=== PATIENT | female | born 1970 | race Caucasian/White ===

== ENCOUNTER 2022-09-30 18:17 | Emergency (ER) | payer BC, SELFPAY ==
[~2022-09-30] VITALS: Ht 175.3 cm; Wt 160.3 kg
[2022-09-30] MEDS ORDERED: ALBUTEROL SULFATE 2.5MG/0.5ML INH NEB SOLN NEB ONE (19:45)
[2022-09-30 20:53] LABS: BASO % 0.4 % (0.0-1.0); EOS # 0.1 10^3/uL (0.0-0.5); EOS % 0.7 % (0.0-3.0); HEMATOCRIT 41.2 % (36.0-47.0); HEMOGLOBIN 12.5 g/dl (12.0-15.5); LYMPH % 10.2 % (24.0-44.0); MEAN CORPUSCULAR HEMOGLOBIN 25.3 pg (27.0-33.0); MEAN CORPUSCULAR HGB CONC 30.3 g/dl (32.0-36.5); MEAN CORPUSCULAR VOLUME 83.2 fl (80.0-96.0); MONO # 0.3 10^3/uL (0.0-0.8); MONO % 3.4 % (2.0-8.0); NEUTROPHILS # 8.3 10^3/uL (1.5-8.5); NEUTROPHILS % 83.7 % (36.0-66.0); RED BLOOD COUNT 4.95 10^6/uL (4.00-5.40); WHITE BLOOD COUNT 9.9 10^3/uL (4.0-10.0)
[2022-09-30 20:58] LABS: CK-MB VALUE MASS < 1.0 NG/ML (<3.6)
[2022-09-30 21:00] LABS: BLOOD UREA NITROGEN 14 MG/DL (9-23); CARBON DIOXIDE LEVEL 29 MMOL/L (20-31); CHLORIDE LEVEL 103 MMOL/L (98-107); CPK CREATINE PHOSPHOKINASE 74 U/L (34-145); CREATININE FOR GFR 0.55 MG/DL (0.55-1.30); GLOMERULAR FILTRATION RATE > 60.0 (>51); GLUCOSE, FASTING 144 MG/DL (60-100); MB/CK RELATIVE INDEX 1.35 (< OR =4); POTASSIUM SERUM 4.2 MMOL/L (3.5-5.1); SODIUM LEVEL 140 MMOL/L (136-145)
[2022-09-30 21:29] LABS: PLATELET COUNT, AUTOMATED 233 10^3/uL (150-450)
[2022-09-30] MEDS ORDERED: ISOVUE-370 76% 100ML VIAL As Ordered ONE (22:41)
[2022-09-30] MEDS ORDERED: CLOTRIMAZOLE 10 MG TROCHE PO ONE (23:55)
[2022-09-30] MEDS ORDERED: CLOT10TR PO (23:58)
[2022-09-30] MEDS ORDERED: BENZ200C70 PO (23:58)
[2022-10-01 00:16] VITALS: O2SAT 91
[2022-10-01 00:32] VITALS: BP 146/70
== END 2022-10-01 00:42 | disposition home or self-care (01) ==
LOC: M ED 18:17
DX: J06.9 Acute upper respiratory infection, unspecified (principal); B37.0 Candidal stomatitis; I50.20 Unspecified systolic (congestive) heart failure; F17.200 Nicotine dependence, unspecified, uncomplicated; Z88.2 Allergy status to sulfonamides; Z88.6 Allergy status to analgesic agent; Z88.5 Allergy status to narcotic agent; Z88.1 Allergy status to other antibiotic agents; Z88.8 Allergy status to other drugs, medicaments and biological substances
CPT/HCPCS: 36415; 71046; 71275; 80048; 82550; 82553; 83880; 84484; 85025; 85379; 87486; 87581; 87633; 87798; 93005; 94640; 94760; 99284; Q9967

== ENCOUNTER 2022-10-28 07:36 | Emergency (ER) | payer MEDICAID ==
[~2022-10-28] VITALS: Ht 175.3 cm; Wt 161.2 kg
[~2022-10-28 07:36] MED LIST: BENZ200C70 PO; CLOT10TR PO
[2022-10-28] MEDS ORDERED: METHOCARBAMOL 1,000 MG/10 ML VIAL IV ONE (09:00)
[2022-10-28] MEDS ORDERED: METHOCARBAMOL 1,000 MG/10 ML VIAL IM ONE (09:55)
[2022-10-28] MEDS ORDERED: PERCOCET 5MG/325MG TAB PO ONE (11:25)
[2022-10-28] MEDS ORDERED: MEDR4PAK PO (11:32)
[2022-10-28] MEDS ORDERED: METH-1165 PO (11:32)
[2022-10-28] MEDS ORDERED: PERC5TAB12 PO (11:32)
[2022-10-28 11:33] VITALS: BP 138/79
== END 2022-10-28 11:48 | disposition home or self-care (01) ==
LOC: M ED 07:36
DX: M25.512 Pain in left shoulder (principal); M19.012 Primary osteoarthritis, left shoulder; E11.9 Type 2 diabetes mellitus without complications; G47.33 Obstructive sleep apnea (adult) (pediatric); Z88.2 Allergy status to sulfonamides; Z88.5 Allergy status to narcotic agent; Z88.8 Allergy status to other drugs, medicaments and biological substances; Z79.899 Other long term (current) drug therapy
CPT/HCPCS: 73030; 80047; 93005; 96372; 99284; J1100; J2800

== ENCOUNTER → 2023-02-08 | Outpatient (CLI) | payer OTHER ==
[~2023-02-08] MED LIST changes: +ADDE30CA3 PO; +ALBU8.5H; +BUSP10TA; +CYMB60CA4 PO; +EPIP0.3I2; +ERGO500029; +FENO48TA8 PO; +MEDR4PAK PO; +METH-1165 PO; +METO1TAB32; +MONT10TA97; +OMEP40CA5; +ONDA-84; +PERC5TAB12 PO; +PRED5TA; +SKELAXIN PO; +TAMS1CAP17; +VITAMIN D 1.25MG PO
== END ==
LOC: M RAD 14:09
PROVIDERS: ATTEND Nurse Practitioner Family
DX: N28.1 Cyst of kidney, acquired (principal)

== ENCOUNTER 2023-02-16 12:06 | Emergency (ER) | payer OTHER ==
[~2023-02-16] VITALS: Ht 177.8 cm; Wt 162.7 kg
[2023-02-16] MEDS ORDERED: AMOX400S PO ×2 (13:33→18:22)
[2023-02-16] MEDS ORDERED: LIDOCAINE 1% SDV 5ML VIAL DILUENT ONE (13:35)
[2023-02-16] MEDS ORDERED: cefTRIAXone SOD 1GM VIAL IM ONE (13:35)
[2023-02-16 14:19] VITALS: BP 126/78; TEMP 98.5; O2SAT 94
== END 2023-02-16 14:21 | disposition home or self-care (01) ==
LOC: M ED 12:06
DX: J36 Peritonsillar abscess (principal); K21.9 Gastro-esophageal reflux disease without esophagitis; J45.909 Unspecified asthma, uncomplicated; Z88.2 Allergy status to sulfonamides; Z88.6 Allergy status to analgesic agent; Z88.8 Allergy status to other drugs, medicaments and biological substances; Z91.030 Bee allergy status; Z79.52 Long term (current) use of systemic steroids; Z79.2 Long term (current) use of antibiotics; Z79.83 Long term (current) use of bisphosphonates; Z79.899 Other long term (current) drug therapy
CPT/HCPCS: 87880; 96372; 99283; J0696

== ENCOUNTER → 2023-03-01 | Outpatient (CLI) | payer OTHER ==
[~2023-03-01] MED LIST changes: +AMOX400S PO
== END ==
LOC: M RAD 09:25
PROVIDERS: ATTEND Nurse Practitioner Family
DX: D41.00 Neoplasm of uncertain behavior of unspecified kidney (principal)

== ENCOUNTER → 2023-04-03 | Outpatient (CLI) | payer OTHER ==
[~2023-04-03] MED LIST changes: +GASTROGRAFIN SOLUTION 30ML ONE; +ISOVUE-370 76% 100ML VIAL ONE
== END ==
LOC: M PLAIMG 11:36
PROVIDERS: ATTEND Nurse Practitioner Family
DX: D41.00 Neoplasm of uncertain behavior of unspecified kidney (principal)

== ENCOUNTER → 2023-06-04 | Outpatient (CLI) | payer OTHER ==
[~2023-06-04] MED LIST changes: -GASTROGRAFIN SOLUTION 30ML ONE
== END ==
LOC: M PLAIMG 05-21 10:39
PROVIDERS: ATTEND Otolaryngology
DX: R22.1 Localized swelling, mass and lump, neck (principal)
CPT/HCPCS: 70491; Q9967

== ENCOUNTER → 2023-06-28 | Outpatient (CLI) | payer OTHER, MEDICAID ==
[~2023-06-28] MED LIST changes: +BUSP15TA47 PO; -EPIP0.3I2; +EPIP0.3I2 IM; -ERGO500029; +ERGO500029 PO; -ISOVUE-370 76% 100ML VIAL ONE; +META1TAB22 PO; +METH4TAB8 PO; +METO1TAB7 PO; -MONT10TA97; +MONT10TA97 PO; -OMEP40CA5; +OMEP40CA5 PO; -ONDA-84; +ONDA-84 PO; -TAMS1CAP17; +TAMS1CAP17 PO
== END ==
LOC: M SOG 07:57
PROVIDERS: ATTEND Orthopaedic Surgery
DX: M25.512 Pain in left shoulder (principal); Z53.9 Procedure and treatment not carried out, unspecified reason

== ENCOUNTER 2023-07-02 07:38 | Day surgery (SDC) | payer OTHER ==
[~2023-07-02] VITALS: Ht 175.3 cm; Wt 167.8 kg
[~2023-07-02 07:38] MED LIST changes: +GLYCOPYRROLATE INJ 0.2 MG/ML 2 ML VIAL As Ordered ONE; +LIDOCAINE 2% 100MG/5ML SDV (FOR ANES.) As Ordered ONE; +NS 1,000 ML IV ONE; +propofoL 200 MG/20 ML VIAL As Ordered ONE
[2023-07-02] MEDS ORDERED: propofoL 200 MG/20 ML VIAL As Ordered ONE ×2 (08:34→08:51)
[2023-07-02 09:09] VITALS: BP 119/59; O2SAT 100
== END 2023-07-02 09:29 | disposition home or self-care (01) ==
LOC: M OPP 07:38
PROVIDERS: ATTEND Internal Medicine Gastroenterology
DX: Z86.010 Personal history of colon polyps (principal); K63.5 Polyp of colon; D12.3 Benign neoplasm of transverse colon; K64.8 Other hemorrhoids; K31.7 Polyp of stomach and duodenum; K44.9 Diaphragmatic hernia without obstruction or gangrene; R12 Heartburn; E11.9 Type 2 diabetes mellitus without complications; G47.30 Sleep apnea, unspecified; Z99.89 Dependence on other enabling machines and devices; Z79.52 Long term (current) use of systemic steroids; Z79.83 Long term (current) use of bisphosphonates; Z79.899 Other long term (current) drug therapy; Z88.1 Allergy status to other antibiotic agents; Z88.2 Allergy status to sulfonamides; Z88.5 Allergy status to narcotic agent; Z88.6 Allergy status to analgesic agent; Z91.030 Bee allergy status; Z91.048 Other nonmedicinal substance allergy status

== ENCOUNTER → 2023-07-17 | Outpatient (CLI) | payer OTHER ==
[~2023-07-17] MED LIST changes: -GLYCOPYRROLATE INJ 0.2 MG/ML 2 ML VIAL As Ordered ONE; -LIDOCAINE 2% 100MG/5ML SDV (FOR ANES.) As Ordered ONE; -NS 1,000 ML IV ONE; -propofoL 200 MG/20 ML VIAL As Ordered ONE
== END ==
LOC: M SOG 07:59
PROVIDERS: ATTEND Orthopaedic Surgery
DX: M25.512 Pain in left shoulder (principal)

== ENCOUNTER → 2023-07-24 | Outpatient (CLI) | payer OTHER | LOC: M SOG 08:17 | PROVIDERS: ATTEND Physician Assistant | DX: M25.511 Pain in right shoulder (principal); M19.011 Primary osteoarthritis, right shoulder ==

== ENCOUNTER → 2023-09-04 | Outpatient (CLI) | payer MEDICAID, OTHER | LOC: M PLAIMG 11:52 | PROVIDERS: ATTEND Nurse Practitioner Family | DX: M48.02 Spinal stenosis, cervical region (principal); M25.78 Osteophyte, vertebrae; M49.86 Spondylopathy in diseases classified elsewhere, lumbar region ==

== ENCOUNTER → 2023-10-10 | Outpatient (REF) | payer OTHER, MEDICAID ==
[2023-10-10 18:26] LABS: ALBUMIN 3.1 G/DL (3.2-5.2); ALKALINE PHOSPHATASE 70 U/L (46-116); ALT/SGPT 31 U/L (7.0-40); AST/SGOT 19 U/L (<34); BILIRUBIN,TOTAL 0.3 MG/DL (0.3-1.2); BLOOD UREA NITROGEN 21 MG/DL (9-23); CALCIUM LEVEL 9.8 MG/DL (8.5-10.1); CARBON DIOXIDE LEVEL 29 MMOL/L (20-31); CHLORIDE LEVEL 105 MMOL/L (98-107); CREATININE FOR GFR 0.59 MG/DL (0.55-1.30); GLOMERULAR FILTRATION RATE > 60.0 (>51); GLUCOSE, FASTING 153 MG/DL (60-100); IMMUNOGLOBULIN A 243.2 MG/DL (40-350); IMMUNOGLOBULIN G 729 MG/DL (650-1600); POTASSIUM SERUM 4.3 MMOL/L (3.5-5.1); SODIUM LEVEL 140 MMOL/L (136-145); TOTAL PROTEIN 6.4 G/DL (5.7-8.2)
[2023-10-10 18:28] LABS: BASO # 0.1 10^3/uL (0.0-0.2); BASO % 0.6 % (0.0-1.0); EOS # 0.2 10^3/uL (0.0-0.5); EOS % 1.5 % (0.0-3.0); HEMATOCRIT 43.2 % (36.0-47.0); HEMOGLOBIN 13.5 g/dl (12.0-15.5); LYMPH # 1.8 10^3/uL (1.5-5.0); LYMPH % 13.3 % (24.0-44.0); MEAN CORPUSCULAR HEMOGLOBIN 27.8 pg (27.0-33.0); MEAN CORPUSCULAR HGB CONC 31.3 g/dl (32.0-36.5); MEAN CORPUSCULAR VOLUME 89.1 fl (80.0-96.0); MONO # 0.7 10^3/uL (0.0-0.8); MONO % 5.6 % (2.0-8.0); NEUTROPHILS # 10.2 10^3/uL (1.5-8.5); NEUTROPHILS % 76.2 % (36.0-66.0); PLATELET COUNT, AUTOMATED 251 10^3/uL (150-450); RED BLOOD COUNT 4.85 10^6/uL (4.00-5.40); WHITE BLOOD COUNT 13.3 10^3/uL (4.0-10.0)
[2023-10-10 18:40] LABS: ERYTHROCYTE SEDIMENTATION RATE 54 mm/hr (0-30)
[2023-10-10 18:59] LABS: HIV 1&2 SCREEN NEGATIVE (NEGATIVE)
[2023-10-10 19:07] LABS: HEPATITIS C VIRUS ABY INDEX < 0.02 INDEX (<0.8)
[2023-10-10 19:08] LABS: HEPATITIS B CORE ANTIBODY IGM NEGATIVE (NEGATIVE)
== END ==
LOC: M SFHCRHEU 14:48
PROVIDERS: ATTEND Internal Medicine Rheumatology
DX: L40.50 Arthropathic psoriasis, unspecified (principal); R21 Rash and other nonspecific skin eruption; Z79.60 Long term (current) use of unspecified immunomodulators and immunosuppressants; M81.8 Other osteoporosis without current pathological fracture; M35.00 Sjogren syndrome, unspecified

== ENCOUNTER → 2023-10-15 | Outpatient (CLI) | payer OTHER, MEDICAID | LOC: M PAIN 13:00 | PROVIDERS: ATTEND Nurse Practitioner Family | DX: M79.18 Myalgia, other site (principal); M79.12 Myalgia of auxiliary muscles, head and neck; G89.29 Other chronic pain; K21.9 Gastro-esophageal reflux disease without esophagitis; F41.9 Anxiety disorder, unspecified; F32.A Depression, unspecified; G62.9 Polyneuropathy, unspecified; J45.909 Unspecified asthma, uncomplicated; G47.30 Sleep apnea, unspecified; E04.1 Nontoxic single thyroid nodule; E78.00 Pure hypercholesterolemia, unspecified; L40.50 Arthropathic psoriasis, unspecified; Z79.891 Long term (current) use of opiate analgesic; Z79.899 Other long term (current) drug therapy; Z88.1 Allergy status to other antibiotic agents; Z88.2 Allergy status to sulfonamides; Z88.6 Allergy status to analgesic agent; Z88.5 Allergy status to narcotic agent; Z88.8 Allergy status to other drugs, medicaments and biological substances; Z91.030 Bee allergy status ==

== ENCOUNTER → 2023-11-05 | Outpatient (CLI) | payer OTHER, MEDICAID | LOC: M PAIN 16:30 | PROVIDERS: ATTEND Nurse Practitioner Family | DX: M79.18 Myalgia, other site (principal); G89.29 Other chronic pain; K21.9 Gastro-esophageal reflux disease without esophagitis; F41.9 Anxiety disorder, unspecified; F32.A Depression, unspecified; G62.9 Polyneuropathy, unspecified; J45.909 Unspecified asthma, uncomplicated; G47.30 Sleep apnea, unspecified; E78.00 Pure hypercholesterolemia, unspecified; L40.50 Arthropathic psoriasis, unspecified; E04.0 Nontoxic diffuse goiter; Z88.1 Allergy status to other antibiotic agents; Z88.2 Allergy status to sulfonamides; Z88.6 Allergy status to analgesic agent; Z88.8 Allergy status to other drugs, medicaments and biological substances; Z91.030 Bee allergy status; Z79.891 Long term (current) use of opiate analgesic; Z79.899 Other long term (current) drug therapy ==

== ENCOUNTER → 2023-11-15 | Outpatient (CLI) | payer OTHER, MEDICAID | LOC: M PAIN 08:15 | PROVIDERS: ATTEND Anesthesiology | DX: M79.12 Myalgia of auxiliary muscles, head and neck (principal); M54.2 Cervicalgia; M79.18 Myalgia, other site; L40.50 Arthropathic psoriasis, unspecified; K21.9 Gastro-esophageal reflux disease without esophagitis; F41.9 Anxiety disorder, unspecified; F32.A Depression, unspecified; G62.9 Polyneuropathy, unspecified; J45.909 Unspecified asthma, uncomplicated; G47.30 Sleep apnea, unspecified; E04.1 Nontoxic single thyroid nodule; E78.00 Pure hypercholesterolemia, unspecified; Z79.891 Long term (current) use of opiate analgesic; Z79.899 Other long term (current) drug therapy; Z88.2 Allergy status to sulfonamides; Z88.1 Allergy status to other antibiotic agents; Z88.5 Allergy status to narcotic agent; Z88.8 Allergy status to other drugs, medicaments and biological substances; Z88.6 Allergy status to analgesic agent | CPT/HCPCS: 76000; G0463 ==

== ENCOUNTER → 2023-12-04 | Outpatient (CLI) | payer OTHER | LOC: M PLALAB 09:02 | PROVIDERS: ATTEND Internal Medicine Rheumatology | DX: L40.50 Arthropathic psoriasis, unspecified (principal); R21 Rash and other nonspecific skin eruption; M81.8 Other osteoporosis without current pathological fracture; M35.00 Sjogren syndrome, unspecified; Z79.60 Long term (current) use of unspecified immunomodulators and immunosuppressants; M19.041 Primary osteoarthritis, right hand; M19.042 Primary osteoarthritis, left hand ==

== ENCOUNTER → 2023-12-04 | Outpatient (CLI) | payer OTHER ==
[~2023-12-04] MED LIST changes: -ALBU8.5H; +ALBU8.5H INH; +ALEN70TA82 PO; +FLUTISP NARES; +FURO20TA2 PO; +LIDO5DIS41 TD; +METO50TA7 PO
[2023-12-04 13:51] LABS: BLOOD UREA NITROGEN 20 MG/DL (9-23); CALCIUM LEVEL 9.6 MG/DL (8.5-10.1); CARBON DIOXIDE LEVEL 33 MMOL/L (20-31); CHLORIDE LEVEL 103 MMOL/L (98-107); GLOMERULAR FILTRATION RATE > 60.0 (>51); GLUCOSE, FASTING 222 MG/DL (60-100); POTASSIUM SERUM 4.6 MMOL/L (3.5-5.1); SODIUM LEVEL 143 MMOL/L (136-145)
[2023-12-04 13:55] LABS: THYROID STIMULATING HORMONE 2.213 uIU/ML (0.55-4.78); TOTAL 25(OH) VITAMIN D 42.1 NG/ML (20.0-100.0)
== END ==
LOC: M PLALAB 08:59
PROVIDERS: ATTEND Student in an Organized Health Care Education/Training Program
DX: E04.1 Nontoxic single thyroid nodule (principal); E55.9 Vitamin D deficiency, unspecified; E11.65 Type 2 diabetes mellitus with hyperglycemia; Z79.4 Long term (current) use of insulin; M81.8 Other osteoporosis without current pathological fracture; T38.0X5A Adverse effect of glucocorticoids and synthetic analogues, initial encounter

== ENCOUNTER 2023-12-13 16:24 | Inpatient (IN) | payer OTHER ==
[~2023-12-13] VITALS: Ht 174 cm; Wt 175.2 kg
[~2023-12-13 16:24] MED LIST changes: -ALEN70TA82 PO; -FLUTISP NARES; -FURO20TA2 PO; -LIDO5DIS41 TD; -METO50TA7 PO
[2023-12-13] MEDS: NS 1,000 ML IV ONE (17:00)
[2023-12-13] MEDS: ACETAMINOPHEN TAB 650MG DOSE (2X325MG) PO ONE (17:15)
[2023-12-13] MEDS: CEFEPIME HCL 2 GM in D5W MINI-BAG PLUS 50 ML IV ONE (17:16)
[2023-12-13 17:26] LABS: BASO # 0.1 10^3/uL (0.0-0.2); BASO % 0.3 % (0.0-1.0); EOS # 0.2 10^3/uL (0.0-0.5); EOS % 0.8 % (0.0-3.0); HEMATOCRIT 41.3 % (36.0-47.0); HEMOGLOBIN 13.2 g/dl (12.0-15.5); LYMPH # 1.5 10^3/uL (1.5-5.0); LYMPH % 7.3 % (24.0-44.0); MEAN CORPUSCULAR HEMOGLOBIN 28.1 pg (27.0-33.0); MEAN CORPUSCULAR VOLUME 87.9 fl (80.0-96.0); MONO # 0.9 10^3/uL (0.0-0.8); MONO % 4.4 % (2.0-8.0); NEUTROPHILS # 16.7 10^3/uL (1.5-8.5); NEUTROPHILS % 84.7 % (36.0-66.0); PLATELET COUNT, AUTOMATED 268 10^3/uL (150-450); WHITE BLOOD COUNT 19.8 10^3/uL (4.0-10.0)
[2023-12-13 17:48] LABS: INR 1.06; PARTIAL THROMBOPLASTIN TIME 30.9 SECONDS (24.8-34.2); PROTHROMBIN TIME 13.5 SECONDS (12.5-14.5)
[2023-12-13 17:50] LABS: APPEARANCE, URINE CLEAR (CLEAR); BACTERIA, URINE AUTO NEGATIVE (NEGATIVE); BILIRUBIN, URINE AUTO NEGATIVE (NEGATIVE); BLOOD, URINE BLOOD NEGATIVE (NEGATIVE); COLOR, URINE STRAW (YELLOW); GLUCOSE, URINE (UA) AUTO NEGATIVE (NEGATIVE); KETONE, URINE AUTO NEGATIVE (NEGATIVE); LEUKOCYTE ESTERASE, URINE AUTO 1+ (NEGATIVE); MUCUS, URINE SMALL (NEGATIVE); NITRITE, URINE AUTO NEGATIVE (NEGATIVE); PROTEIN, URINE AUTO NEGATIVE (NEGATIVE); RBC, URINE AUTO 1 /HPF (0-3); SPECIFIC GRAVITY URINE AUTO 1.008 (1.002-1.035); SQUAMOUS EPITHELIAL CELL UR AU 0 /HPF (0-6); UROBILINOGEN, URINE AUTO 0.2 mg/dL (0.0-2.0); WBC, URINE AUTO 8 /HPF (0-3)
[2023-12-13 17:53] LABS: ABG BASE EXCESS -0.7 (-2.0-2.0); ABG HCO3 18.6 MMOL/L (22.0-26.0); ABG O2 SATURATION 95.7 % (95.0-99.0); ABG PARTIAL PRESSURE CO2 19.4 mmHg (35.0-45.0); ABG PARTIAL PRESSURE O2 64.9 mmHg (75.0-100.0); ABG STANDARD HCO3 23.9 MMOL/L. (22.0-26.0); ABG TOTAL CO2 19.2 MMOL/L (22.0-29.0); ABG pH (ARTERIAL) 7.599 UNITS (7.350-7.450)
[2023-12-13 18:43] LABS: AMYLASE 22 U/L (30-118)
[2023-12-13 18:44] LABS: ALKALINE PHOSPHATASE 61 U/L (46-116); ALT/SGPT 52 U/L (7.0-40); AST/SGOT 51 U/L (<34); BILIRUBIN,DIRECT 0.2 MG/DL (<0.4); BILIRUBIN,TOTAL 0.7 MG/DL (0.3-1.2); BLOOD UREA NITROGEN 14 MG/DL (9-23); CALCIUM LEVEL 9.4 MG/DL (8.5-10.1); CARBON DIOXIDE LEVEL 26 MMOL/L (20-31); CHLORIDE LEVEL 100 MMOL/L (98-107); CREATININE FOR GFR 0.68 MG/DL (0.55-1.30); GLOMERULAR FILTRATION RATE > 60.0 (>51); GLUCOSE, FASTING 143 MG/DL (60-100); POTASSIUM SERUM 3.3 MMOL/L (3.5-5.1); SODIUM LEVEL 136 MMOL/L (136-145); TOTAL PROTEIN 6.2 G/DL (5.7-8.2)
[2023-12-13 18:55] LABS: PROCALCITONIN 0.29 ng/ml
[2023-12-13] MEDS ORDERED: ONDANSETRON 4MG 2ML VIAL As Ordered ONE (19:28)
[2023-12-13] MEDS: ONDANSETRON 4MG 2ML VIAL IV ONE (19:42)
[2023-12-13] MEDS ORDERED: METO50TA7 PO (20:27)
[2023-12-13] MEDS ORDERED: FURO20TA2 PO (20:27)
[2023-12-13] MEDS ORDERED: LIDO5DIS41 TD (20:29)
[2023-12-13] MEDS ORDERED: HOME MED LIST COMPLETE! XX SCH (20:30)
[2023-12-13] MEDS ORDERED: ALEN70TA82 PO (20:32)
[2023-12-13] MEDS ORDERED: FLUTISP NARES (20:32)
[2023-12-13] MEDS: fentaNYL 100 MCG/2 ML INJECTION IV ONE ×2 (20:43→22:02)
[2023-12-13] MEDS: METOCLOPRAMIDE INJ 10MG/2ML VIAL IV ONE (22:03)
[2023-12-13] MEDS ORDERED: MOM 30ML SUSPENSION UDC PO PRN (23:10)
[2023-12-13] MEDS ORDERED: MAALOX 30 ML SUSP *UDC PO PRN (23:10)
[2023-12-13] MEDS: ACETAMINOPHEN *IV* 1,000 MG in IV 1 EA IV ONE (23:12)
[2023-12-13] MEDS ORDERED: ISOVUE-370 76% 100ML VIAL As Ordered ONE (23:19)
[2023-12-14] VITALS (11 sets, daily range): BP systolic 107–132; BP diastolic 54–66; TEMP 98.4–102.9; O2SAT 88–96
[2023-12-14 00:47] LABS: FREE T4 1.01 NG/DL (0.89-1.76); THYROID STIMULATING HORMONE 2.589 uIU/ML (0.55-4.78)
[2023-12-14] MEDS: ACETAMINOPHEN TAB 650MG DOSE (2X325MG) PO PRN (01:58)
[2023-12-14] MEDS: POTASSIUM CHLORIDE 10MEQ SR TABLET PO ONE (01:58)
[2023-12-14] MEDS: MAG SULF 1GM/100ML (MAG RUN) 1 GM in IV 1 EA IV SCH (01:58)
[2023-12-14] MEDS: MAGNESIUM OXIDE 400MG TAB (MAG-OX) PO ONE (03:56)
[2023-12-14] MEDS: NS 1,000 ML IV SCH (03:57)
[2023-12-14] MEDS: CEFEPIME HCL 2 GM in D5W 50 ML IV SCH (04:00)
[2023-12-14 04:55] LABS: HEMOGLOBIN 11.4 g/dl (12.0-15.5); MEAN CORPUSCULAR HEMOGLOBIN 27.7 pg (27.0-33.0); MEAN CORPUSCULAR HGB CONC 30.8 g/dl (32.0-36.5); MEAN CORPUSCULAR VOLUME 89.8 fl (80.0-96.0); PLATELET COUNT, AUTOMATED 212 10^3/uL (150-450); RED BLOOD COUNT 4.12 10^6/uL (4.00-5.40); WHITE BLOOD COUNT 16.7 10^3/uL (4.0-10.0)
[2023-12-14 05:27] LABS: PROCALCITONIN 0.96 ng/ml
[2023-12-14 05:28] LABS: ALBUMIN 2.5 G/DL (3.2-5.2); ALKALINE PHOSPHATASE 54 U/L (46-116); ALT/SGPT 39 U/L (7.0-40); AST/SGOT 33 U/L (<34); BILIRUBIN,TOTAL 0.6 MG/DL (0.3-1.2); BLOOD UREA NITROGEN 9 MG/DL (9-23); CALCIUM LEVEL 7.9 MG/DL (8.5-10.1); CARBON DIOXIDE LEVEL 28 MMOL/L (20-31); CHLORIDE LEVEL 104 MMOL/L (98-107); CREATININE FOR GFR 0.66 MG/DL (0.55-1.30); GLOMERULAR FILTRATION RATE > 60.0 (>51); GLUCOSE, FASTING 181 MG/DL (60-100); MAGNESIUM LEVEL 1.8 MG/DL (1.8-2.4); POTASSIUM SERUM 3.6 MMOL/L (3.5-5.1); SODIUM LEVEL 139 MMOL/L (136-145); TOTAL PROTEIN 5.4 G/DL (5.7-8.2)
[2023-12-14] MEDS: HEPARIN SOD (PORCINE) 5000UNITS/ML 1ML VIAL/SYRINGE SC SCH (05:39)
[2023-12-14] MEDS: ONDANSETRON 4MG TAB PO ONE (05:54)
[2023-12-14] MEDS: DOCUSATE SODIUM 100MG CAPSULE PO SCH (09:01)
[2023-12-14] MEDS: busPIRone 10 MG TAB PO SCH (10:22)
[2023-12-14] MEDS: LIDOCAINE 5% (LIDODERM) PATCH TD SCH (10:22)
[2023-12-14] MEDS: METOPROLOL TART 50 MG TAB PO SCH (10:23)
[2023-12-14] MEDS: FUROSEMIDE 20 MG TAB PO SCH (10:23)
[2023-12-14] MEDS: TAMSULOSIN 0.4 MG CAP PO SCH (10:23)
[2023-12-14] MEDS: METAXALONE 800 MG TABLET PO SCH (10:24)
[2023-12-14] MEDS: FLUTICASONE PROP 0.05% NASAL SPRAY 16 GM (FLONASE) NARES SCH (10:24)
[2023-12-14] MEDS ORDERED: VANCOMYCIN HCL 1,000 MG, VIAL MATE ADAPTER 1 EACH in D5W 250 ML IV SCH (11:15)
[2023-12-14] MEDS: ACETAMINOPHEN *IV* 1,000 MG in IV 1 EA IV ONE (11:52)
[2023-12-14] MEDS: VANCOMYCIN HCL 1,000 MG, VIAL MATE ADAPTER 1 EACH in D5W 250 ML IV ONE ×2 (12:22→13:37)
[2023-12-14] MEDS ORDERED: DEXTROSE 50% 50ML SYRINGE IV PRN (14:20)
[2023-12-14] MEDS ORDERED: GLUCOSE 4 GM CHEW PO PRN (14:20)
[2023-12-14] MEDS ORDERED: GLUCAGON INJ 1MG VIAL SC PRN (14:20)
[2023-12-14 15:32] LABS: HEMOGLOBIN A1c 7.2 % (4.0-6.0)
[2023-12-14] MEDS: PANTOPRAZOLE 40MG TAB (PROTONIX) PO SCH (15:55)
[2023-12-14] MEDS: INSULIN LISPRO (NovoLOG) PER UNIT SC SCH ×2 (17:10→20:50)
[2023-12-14] MEDS: VANCOMYCIN HCL 750 MG, VIAL MATE ADAPTER 1 EACH in D5W 250 ML IV SCH ×2 (19:55→21:20)
[2023-12-14] MEDS: DULoxetine 30MG CAPSULE (CYMBALTA) PO SCH (20:44)
[2023-12-14] MEDS: MONTELUKAST 10 MG TAB PO SCH (20:44)
[2023-12-14] MEDS: ONDANSETRON 4MG 2ML VIAL IV PRN (20:55)
[2023-12-14] MEDS: ALPRAZolam 0.25 MG TAB PO ONE (22:33)
[2023-12-15] VITALS: BP 120/60; TEMP 99.1; O2SAT 94
[2023-12-15 04:00] VITALS: BP 128/78; TEMP 98.6; O2SAT 93
[2023-12-15 06:45] LABS: BASO % 0.3 % (0.0-1.0); EOS # 0.1 10^3/uL (0.0-0.5); EOS % 0.6 % (0.0-3.0); HEMATOCRIT 34.9 % (36.0-47.0); HEMOGLOBIN 10.9 g/dl (12.0-15.5); LYMPH # 0.7 10^3/uL (1.5-5.0); LYMPH % 6.1 % (24.0-44.0); MEAN CORPUSCULAR HEMOGLOBIN 27.8 pg (27.0-33.0); MEAN CORPUSCULAR HGB CONC 31.2 g/dl (32.0-36.5); MONO # 0.5 10^3/uL (0.0-0.8); MONO % 4.4 % (2.0-8.0); NEUTROPHILS % 87.4 % (36.0-66.0); PLATELET COUNT, AUTOMATED 189 10^3/uL (150-450); RED BLOOD COUNT 3.92 10^6/uL (4.00-5.40); WHITE BLOOD COUNT 11.5 10^3/uL (4.0-10.0)
[2023-12-15 07:06] LABS: BLOOD UREA NITROGEN 9 MG/DL (9-23); CALCIUM LEVEL 8.1 MG/DL (8.5-10.1); CARBON DIOXIDE LEVEL 29 MMOL/L (20-31); CHLORIDE LEVEL 108 MMOL/L (98-107); CREATININE FOR GFR 0.53 MG/DL (0.55-1.30); GLOMERULAR FILTRATION RATE > 60.0 (>51); GLUCOSE, FASTING 172 MG/DL (60-100); MAGNESIUM LEVEL 1.8 MG/DL (1.8-2.4); POTASSIUM SERUM 3.8 MMOL/L (3.5-5.1); SODIUM LEVEL 141 MMOL/L (136-145)
[2023-12-15 08:43] VITALS: BP 118/61; TEMP 97.9; O2SAT 94
[2023-12-15] MEDS: ACETAMINOPHEN 500 MG TAB PO PRN (10:15)
[2023-12-15 12:19] VITALS: BP 108/64; TEMP 96.9; O2SAT 93
[2023-12-15] MEDS: VANCOMYCIN HCL 500 MG in D5W MINI-BAG PLUS 100 ML IV ONE (15:44)
[2023-12-15] MEDS: traMADol 50 MG TAB PO ONE (18:50)
[2023-12-15 19:33] VITALS: BP 133/76; TEMP 97.2; O2SAT 95
[2023-12-15] MEDS: ACETAMINOPHEN *IV* 1,000 MG in IV 1 EA IV ONE (20:31)
[2023-12-15 20:43] VITALS: TEMP 100.4
[2023-12-15] MEDS: METHOCARBAMOL 1,000 MG/10 ML VIAL IV ONE (20:45)
[2023-12-16 02:07] VITALS: BP 128/82; TEMP 98.2; O2SAT 95
[2023-12-16] MEDS: FIORICET TAB PO ONE ×2 (03:02→18:12)
[2023-12-16 06:05] LABS: BASO % 0.3 % (0.0-1.0); EOS # 0.1 10^3/uL (0.0-0.5); EOS % 0.6 % (0.0-3.0); HEMATOCRIT 37.3 % (36.0-47.0); HEMOGLOBIN 11.5 g/dl (12.0-15.5); LYMPH # 0.9 10^3/uL (1.5-5.0); LYMPH % 9.4 % (24.0-44.0); MEAN CORPUSCULAR HGB CONC 30.8 g/dl (32.0-36.5); MEAN CORPUSCULAR VOLUME 90.8 fl (80.0-96.0); MONO # 0.5 10^3/uL (0.0-0.8); MONO % 5.4 % (2.0-8.0); NEUTROPHILS # 8.2 10^3/uL (1.5-8.5); NEUTROPHILS % 83.2 % (36.0-66.0); PLATELET COUNT, AUTOMATED 200 10^3/uL (150-450); RED BLOOD COUNT 4.11 10^6/uL (4.00-5.40); WHITE BLOOD COUNT 9.9 10^3/uL (4.0-10.0)
[2023-12-16 06:29] LABS: BLOOD UREA NITROGEN 8 MG/DL (9-23); CARBON DIOXIDE LEVEL 30 MMOL/L (20-31); CHLORIDE LEVEL 103 MMOL/L (98-107); CREATININE FOR GFR 0.57 MG/DL (0.55-1.30); GLOMERULAR FILTRATION RATE > 60.0 (>51); GLUCOSE, FASTING 192 MG/DL (60-100); MAGNESIUM LEVEL 1.6 MG/DL (1.8-2.4); POTASSIUM SERUM 3.9 MMOL/L (3.5-5.1); SODIUM LEVEL 138 MMOL/L (136-145)
[2023-12-16 08:00] VITALS: BP 158/78; TEMP 97.9; O2SAT 87
[2023-12-16 11:19] LABS: PROCALCITONIN 0.43 ng/ml
[2023-12-16 11:23] VITALS: BP 131/68; TEMP 97.6; O2SAT 91
[2023-12-16 11:26] LABS: ERYTHROCYTE SEDIMENTATION RATE 105 mm/hr (0-30)
[2023-12-16] MEDS: PIPERACILLIN/TAZOBACTAM SOD 3.375 GM in D5W MINI-BAG PLUS 50 ML IV SCH (12:22)
[2023-12-16] MEDS: MAGNESIUM OXIDE 400MG TAB (MAG-OX) PO SCH (12:23)
[2023-12-16] MEDS: SUMAtriptan SUCCINATE 25 MG TAB PO ONE (12:23)
[2023-12-16] MEDS: FUROSEMIDE 100MG/10ML VIAL IV ONE (14:53)
[2023-12-16 15:26] VITALS: TEMP 98; O2SAT 95
[2023-12-16] MEDS: ACETAMINOPHEN 500 MG TAB PO SCH (16:25)
[2023-12-16 19:19] VITALS: BP 121/60; TEMP 97.2; O2SAT 94
[2023-12-17 03:00] VITALS: BP 119/71; TEMP 97; O2SAT 95
[2023-12-17 07:01] LABS: BASO % 0.4 % (0.0-1.0); EOS # 0.1 10^3/uL (0.0-0.5); EOS % 1.3 % (0.0-3.0); HEMATOCRIT 35.5 % (36.0-47.0); HEMOGLOBIN 10.7 g/dl (12.0-15.5); LYMPH % 12.5 % (24.0-44.0); MEAN CORPUSCULAR HEMOGLOBIN 27.4 pg (27.0-33.0); MEAN CORPUSCULAR HGB CONC 30.1 g/dl (32.0-36.5); MONO # 0.4 10^3/uL (0.0-0.8); MONO % 5.5 % (2.0-8.0); NEUTROPHILS # 6.3 10^3/uL (1.5-8.5); NEUTROPHILS % 79.2 % (36.0-66.0); PLATELET COUNT, AUTOMATED 223 10^3/uL (150-450)
[2023-12-17 07:36] LABS: BLOOD UREA NITROGEN 11 MG/DL (9-23); CARBON DIOXIDE LEVEL 35 MMOL/L (20-31); CHLORIDE LEVEL 103 MMOL/L (98-107); CREATININE FOR GFR 0.54 MG/DL (0.55-1.30); GLOMERULAR FILTRATION RATE > 60.0 (>51); GLUCOSE, FASTING 196 MG/DL (60-100); MAGNESIUM LEVEL 1.7 MG/DL (1.8-2.4); POTASSIUM SERUM 3.7 MMOL/L (3.5-5.1); SODIUM LEVEL 141 MMOL/L (136-145)
[2023-12-17 08:00] VITALS: BP 136/68; TEMP 97.4; O2SAT 94
[2023-12-17 09:13] VITALS: BP 94/61; TEMP 97.7; O2SAT 95
[2023-12-17] MEDS: MAG SULF 1GM/100ML (MAG RUN) 1 GM in IV 1 EA IV SCH ×2 (10:00→14:30)
[2023-12-17] MEDS: FUROSEMIDE 100MG/10ML VIAL IV ONE (10:53)
[2023-12-17] MEDS: SUMAtriptan SUCCINATE 25 MG TAB PO PRN (10:58)
[2023-12-17 12:00] VITALS: BP 135/87; TEMP 97.5; O2SAT 95
[2023-12-17] MEDS: LACTOBACILLUS ACIDOPHILUS CAP (BACID) PO SCH (17:56)
[2023-12-17 20:00] VITALS: BP 126/65; TEMP 98.5; O2SAT 94
[2023-12-18] VITALS (10 sets, daily range): BP systolic 114–148; BP diastolic 63–89; TEMP 97–98.8; O2SAT 91–95
[2023-12-18 06:03] LABS: BASO % 0.6 % (0.0-1.0); EOS # 0.1 10^3/uL (0.0-0.5); EOS % 1.7 % (0.0-3.0); HEMATOCRIT 35.9 % (36.0-47.0); HEMOGLOBIN 10.8 g/dl (12.0-15.5); LYMPH # 1.2 10^3/uL (1.5-5.0); LYMPH % 18.6 % (24.0-44.0); MEAN CORPUSCULAR HEMOGLOBIN 27.3 pg (27.0-33.0); MEAN CORPUSCULAR HGB CONC 30.1 g/dl (32.0-36.5); MEAN CORPUSCULAR VOLUME 90.7 fl (80.0-96.0); MONO # 0.5 10^3/uL (0.0-0.8); MONO % 7.5 % (2.0-8.0); NEUTROPHILS # 4.6 10^3/uL (1.5-8.5); NEUTROPHILS % 69.9 % (36.0-66.0); PLATELET COUNT, AUTOMATED 236 10^3/uL (150-450); RED BLOOD COUNT 3.96 10^6/uL (4.00-5.40); WHITE BLOOD COUNT 6.5 10^3/uL (4.0-10.0)
[2023-12-18 06:29] LABS: BLOOD UREA NITROGEN 12 MG/DL (9-23); CALCIUM LEVEL 8.3 MG/DL (8.5-10.1); CARBON DIOXIDE LEVEL > 40.0 MMOL/L (20-31); CHLORIDE LEVEL 101 MMOL/L (98-107); CREATININE FOR GFR 0.55 MG/DL (0.55-1.30); GLOMERULAR FILTRATION RATE > 60.0 (>51); GLUCOSE, FASTING 160 MG/DL (60-100); MAGNESIUM LEVEL 1.8 MG/DL (1.8-2.4); POTASSIUM SERUM 3.7 MMOL/L (3.5-5.1); SODIUM LEVEL 144 MMOL/L (136-145)
[2023-12-18 08:52] LABS: ERYTHROCYTE SEDIMENTATION RATE 46 mm/hr (0-30)
[2023-12-18] MEDS: FUROSEMIDE 100MG/10ML VIAL IV ONE ×2 (09:57→20:36)
[2023-12-18] MEDS: AUGMENTIN 875 MG TAB PO SCH (11:36)
[2023-12-18 14:36] LABS: VENOUS BASE EXCESS 11.5 (-2.0-2.0); VENOUS HCO3 39.4 MMOL/L (23.0-27.0); VENOUS O2 SATURATION 85.9 % (60.0-80.0); VENOUS PARTIAL PRESSURE CO2 68.3 mmHg (38.0-50.0); VENOUS PARTIAL PRESSURE O2 51.3 mmHg (30.0-50.0); VENOUS PH 7.379 UNITS (7.330-7.430); VENOUS TOTAL CO2 41.5 MMOL/L (24.0-28.0)
[2023-12-18] MEDS: ALBUTEROL 90 MCG/ACT 8GM HFA INHALER INH PRN (15:43)
[2023-12-19] VITALS (8 sets, daily range): BP systolic 118–141; BP diastolic 66–79; TEMP 97.2–98.2; O2SAT 84–97
[2023-12-19 07:40] LABS: BASO # 0.1 10^3/uL (0.0-0.2); BASO % 0.6 % (0.0-1.0); EOS # 0.2 10^3/uL (0.0-0.5); EOS % 2.3 % (0.0-3.0); HEMATOCRIT 38.5 % (36.0-47.0); HEMOGLOBIN 11.6 g/dl (12.0-15.5); LYMPH # 1.2 10^3/uL (1.5-5.0); LYMPH % 15.7 % (24.0-44.0); MEAN CORPUSCULAR HGB CONC 30.1 g/dl (32.0-36.5); MEAN CORPUSCULAR VOLUME 89.5 fl (80.0-96.0); MONO # 0.4 10^3/uL (0.0-0.8); MONO % 5.3 % (2.0-8.0); NEUTROPHILS # 5.6 10^3/uL (1.5-8.5); NEUTROPHILS % 71.5 % (36.0-66.0); PLATELET COUNT, AUTOMATED 274 10^3/uL (150-450); WHITE BLOOD COUNT 7.8 10^3/uL (4.0-10.0)
[2023-12-19 08:26] LABS: BLOOD UREA NITROGEN 11 MG/DL (9-23); CALCIUM LEVEL 8.8 MG/DL (8.5-10.1); CARBON DIOXIDE LEVEL 35 MMOL/L (20-31); CHLORIDE LEVEL 101 MMOL/L (98-107); CREATININE FOR GFR 0.56 MG/DL (0.55-1.30); GLOMERULAR FILTRATION RATE > 60.0 (>51); GLUCOSE, FASTING 185 MG/DL (60-100); POTASSIUM SERUM 3.3 MMOL/L (3.5-5.1); SODIUM LEVEL 143 MMOL/L (136-145)
[2023-12-19] MEDS: FUROSEMIDE 100MG/10ML VIAL IV ONE (10:55)
[2023-12-19] MEDS: IPRATROPIUM 0.5MG/ALBUTEROL 2.5MG INH SOL UD 3ML (DUONEB) NEB PRN (12:20)
[2023-12-19] MEDS ORDERED: ARTIFICIAL TEARS DROPS 15ML BTL (VISINE DRY RELIEF) OU PRN (20:50)
[2023-12-19] MEDS: BENZONATATE 100MG CAPSULE PO PRN (21:42)
[2023-12-20] VITALS: BP 132/70; TEMP 97.9; O2SAT 92
[2023-12-20 04:00] VITALS: BP 111/57; TEMP 97.9; O2SAT 91
[2023-12-20 06:55] LABS: HEMATOCRIT 39.7 % (36.0-47.0); HEMOGLOBIN 12.2 g/dl (12.0-15.5); MEAN CORPUSCULAR HEMOGLOBIN 27.9 pg (27.0-33.0); MEAN CORPUSCULAR HGB CONC 30.7 g/dl (32.0-36.5); MEAN CORPUSCULAR VOLUME 90.8 fl (80.0-96.0); PLATELET COUNT, AUTOMATED 297 10^3/uL (150-450); RED BLOOD COUNT 4.37 10^6/uL (4.00-5.40)
[2023-12-20 07:10] LABS: ATYPICAL LYMPH 4 % (0-5); EOSINOPHILS 4 % (0-3); LYMPHOCYTES 11 % (16-44); MONOCYTES 4 % (0-5); NEUTROPHILS 77 % (28-66); PLATELET ESTIMATE NORMAL (NORMAL)
[2023-12-20 07:11] LABS: ANISOCYTOSIS 1+; POLYCHROMASIA 1+
[2023-12-20 07:16] LABS: BLOOD UREA NITROGEN 14 MG/DL (9-23); CALCIUM LEVEL 9.1 MG/DL (8.5-10.1); CARBON DIOXIDE LEVEL 36 MMOL/L (20-31); CHLORIDE LEVEL 101 MMOL/L (98-107); CREATININE FOR GFR 0.56 MG/DL (0.55-1.30); GLOMERULAR FILTRATION RATE > 60.0 (>51); GLUCOSE, FASTING 178 MG/DL (60-100); POTASSIUM SERUM 3.4 MMOL/L (3.5-5.1); SODIUM LEVEL 141 MMOL/L (136-145)
[2023-12-20 08:50] VITALS: BP 133/75; TEMP 97.5; O2SAT 90
[2023-12-20] MEDS: FUROSEMIDE 100MG/10ML VIAL IV ONE (09:02)
[2023-12-20] MEDS: metOLazone 5 MG TAB PO ONE (09:05)
[2023-12-20] MEDS ORDERED: LASI40TA9 PO (09:27)
[2023-12-20] MEDS ORDERED: BENZ-18 PO (09:27)
[2023-12-20] MEDS ORDERED: AMOX875T2 PO (09:27)
[2023-12-20] MEDS ORDERED: SUMA25TA3 PO (09:27)
[2023-12-20 12:08] VITALS: BP 128/69; TEMP 97.5; O2SAT 93
[2023-12-20] MEDS ORDERED: ALBU8.5H INH (12:24)
== END 2023-12-20 14:36 | disposition home or self-care (01) | DRG 720 ==
LOC: EDBD 16:24 → M ED 16:24 → M ED INP 22:29 → M PCU 12-14 01:48 → M MSPAV 12-17 09:12
PROVIDERS: ADMIT Family Medicine; ATTEND Student in an Organized Health Care Education/Training Program
DX: A41.9 Sepsis, unspecified organism (principal); J96.01 Acute respiratory failure with hypoxia; D84.9 Immunodeficiency, unspecified; E11.40 Type 2 diabetes mellitus with diabetic neuropathy, unspecified; L40.50 Arthropathic psoriasis, unspecified; E78.5 Hyperlipidemia, unspecified; G43.909 Migraine, unspecified, not intractable, without status migrainosus; I10 Essential (primary) hypertension; J45.909 Unspecified asthma, uncomplicated; L03.115 Cellulitis of right lower limb; M54.2 Cervicalgia; G89.29 Other chronic pain; E66.9 Obesity, unspecified; F32.A Depression, unspecified; F41.9 Anxiety disorder, unspecified; G47.33 Obstructive sleep apnea (adult) (pediatric); Z79.52 Long term (current) use of systemic steroids; M81.0 Age-related osteoporosis without current pathological fracture; M79.7 Fibromyalgia; Z87.442 Personal history of urinary calculi; Z88.2 Allergy status to sulfonamides; Z88.8 Allergy status to other drugs, medicaments and biological substances; Z88.6 Allergy status to analgesic agent; Z88.5 Allergy status to narcotic agent; Z79.899 Other long term (current) drug therapy

== ENCOUNTER 2023-12-23 04:04 | Inpatient (IN) | payer OTHER ==
[~2023-12-23] VITALS: Ht 174 cm; Wt 172.7 kg
[~2023-12-23 04:04] MED LIST changes: +ALEN70TA82 PO; +AMOX875T2 PO; +BENZ-18 PO; +FLUTISP NARES; +FURO20TA2 PO; +LASI40TA9 PO; +LIDO5DIS41 TD; +METO50TA7 PO; +SUMA25TA3 PO
[2023-12-23 06:34] LABS: BASO % 0.3 % (0.0-1.0); EOS # 0.1 10^3/uL (0.0-0.5); EOS % 0.6 % (0.0-3.0); HEMATOCRIT 44.2 % (36.0-47.0); HEMOGLOBIN 14.4 g/dl (12.0-15.5); LYMPH # 1.8 10^3/uL (1.5-5.0); LYMPH % 14.7 % (24.0-44.0); MEAN CORPUSCULAR HEMOGLOBIN 27.2 pg (27.0-33.0); MEAN CORPUSCULAR HGB CONC 32.6 g/dl (32.0-36.5); MEAN CORPUSCULAR VOLUME 83.4 fl (80.0-96.0); MONO # 0.6 10^3/uL (0.0-0.8); MONO % 4.8 % (2.0-8.0); NEUTROPHILS # 9.2 10^3/uL (1.5-8.5); NEUTROPHILS % 76.8 % (36.0-66.0); PLATELET COUNT, AUTOMATED 394 10^3/uL (150-450)
[2023-12-23 07:00] LABS: LIPASE 54 U/L (12-53)
[2023-12-23 07:05] LABS: ALBUMIN 3.7 G/DL (3.2-5.2); ALKALINE PHOSPHATASE 72 U/L (46-116); ALT/SGPT 53 U/L (7.0-40); AST/SGOT 54 U/L (<34); BILIRUBIN,DIRECT 0.3 MG/DL (<0.4); BLOOD UREA NITROGEN 27 MG/DL (9-23); CALCIUM LEVEL 10.5 MG/DL (8.5-10.1); CARBON DIOXIDE LEVEL 29 MMOL/L (20-31); CHLORIDE LEVEL 87 MMOL/L (98-107); CK-MB VALUE MASS < 1.0 NG/ML (<3.6); CPK CREATINE PHOSPHOKINASE 71 U/L (34-145); CREATININE FOR GFR 0.75 MG/DL (0.55-1.30); GLOMERULAR FILTRATION RATE > 60.0 (>51); GLUCOSE, FASTING 227 MG/DL (60-100); POTASSIUM SERUM 2.8 MMOL/L (3.5-5.1); SODIUM LEVEL 131 MMOL/L (136-145); TOTAL PROTEIN 7.4 G/DL (5.7-8.2)
[2023-12-23] MEDS ORDERED: ISOVUE-370 76% 100ML VIAL As Ordered ONE (07:52)
[2023-12-23] MEDS: KCL 10MEQ/100ML SWI (KRUN) 10 MEQ in IV 1 EA IV ONE (07:55)
[2023-12-23] MEDS: NS IV ONE (07:55)
[2023-12-23] MEDS: MAG SULF 1GM/100ML (MAG RUN) 1 GM in IV 1 EA IV ONE (07:55)
[2023-12-23] MEDS: diphenhydrAMINE 50MG/ML VIAL IV ONE (08:27)
[2023-12-23] MEDS: MORPHINE 4 MG/ML 1ML VIAL IV ONE (08:27)
[2023-12-23 08:44] LABS: PROCALCITONIN 0.24 ng/ml
[2023-12-23] MEDS ORDERED: SITagliptin 50 MG TAB (JANUVIA) PO SCH (09:00)
[2023-12-23] MEDS: FLUTICASONE PROP 0.05% NASAL SPRAY 16 GM (FLONASE) NARES SCH (09:00)
[2023-12-23] MEDS: METAXALONE 800 MG TABLET PO SCH (09:00)
[2023-12-23] MEDS: cefTRIAXone SOD 2 GM in D5W MINI-BAG PLUS 50 ML IV ONE (09:26)
[2023-12-23] MEDS ORDERED: BENZ-18 PO (10:26)
[2023-12-23] MEDS ORDERED: AMOX875T2 PO (10:26)
[2023-12-23] MEDS ORDERED: FURO40TA2 PO (10:26)
[2023-12-23] MEDS ORDERED: LIDO1PAD TOP (10:31)
[2023-12-23] MEDS ORDERED: SITA50TAB PO (10:31)
[2023-12-23] MEDS ORDERED: SUMA25TA3 PO (10:31)
[2023-12-23] MEDS ORDERED: SEMA1PEN2 SQ (10:31)
[2023-12-23] MEDS ORDERED: HOME MED LIST COMPLETE! XX SCH (10:35)
[2023-12-23] MEDS ORDERED: LIDOCAINE 5% (LIDODERM) PATCH TOP PRN (10:50)
[2023-12-23] MEDS ORDERED: **SFRHE** EPINEPHrine (EPIPEN) 0.3MG/0.3ML SYRINGE XX PRN (10:50)
[2023-12-23] MEDS ORDERED: ONDANSETRON 4MG TAB PO PRN ×2 (10:50→10:55)
[2023-12-23] MEDS ORDERED: GLUCAGON INJ 1MG VIAL SC PRN (10:55)
[2023-12-23] MEDS ORDERED: DEXTROSE 50% 50ML SYRINGE IV PRN (10:55)
[2023-12-23] MEDS ORDERED: GLUCOSE 4 GM CHEW PO PRN (10:55)
[2023-12-23] MEDS: INSULIN LISPRO (NovoLOG) PER UNIT SC SCH ×2 (12:00→21:00)
[2023-12-23] MEDS: FUROSEMIDE 40 MG TAB PO SCH (12:22)
[2023-12-23] MEDS: METOPROLOL TART 50 MG TAB PO SCH (12:23)
[2023-12-23] MEDS: TAMSULOSIN 0.4 MG CAP PO SCH (12:23)
[2023-12-23] MEDS: busPIRone 5 MG TAB PO SCH (12:24)
[2023-12-23 12:49] LABS: MAGNESIUM LEVEL 1.4 MG/DL (1.8-2.4)
[2023-12-23 15:28] VITALS: BP 109/66; TEMP 97.7; O2SAT 97
[2023-12-23 16:57] LABS: HEMATOCRIT 36.6 % (36.0-47.0); MEAN CORPUSCULAR HEMOGLOBIN 27.7 pg (27.0-33.0); MEAN CORPUSCULAR VOLUME 86.7 fl (80.0-96.0); PLATELET COUNT, AUTOMATED 308 10^3/uL (150-450); RED BLOOD COUNT 4.22 10^6/uL (4.00-5.40); WHITE BLOOD COUNT 10.4 10^3/uL (4.0-10.0)
[2023-12-23 17:09] LABS: HEMOGLOBIN 11.7 g/dl (12.0-15.5)
[2023-12-23 17:18] LABS: ALBUMIN 2.7 G/DL (3.2-5.2); ALKALINE PHOSPHATASE 56 U/L (46-116); ALT/SGPT 38 U/L (7.0-40); AST/SGOT 35 U/L (<34); BILIRUBIN,TOTAL 0.4 MG/DL (0.3-1.2); BLOOD UREA NITROGEN 19 MG/DL (9-23); CALCIUM LEVEL 8.4 MG/DL (8.5-10.1); CARBON DIOXIDE LEVEL 33 MMOL/L (20-31); CHLORIDE LEVEL 99 MMOL/L (98-107); CREATININE FOR GFR 0.62 MG/DL (0.55-1.30); GLOMERULAR FILTRATION RATE > 60.0 (>51); GLUCOSE, FASTING 152 MG/DL (60-100); MAGNESIUM LEVEL 1.4 MG/DL (1.8-2.4); POTASSIUM SERUM 2.7 MMOL/L (3.5-5.1); SODIUM LEVEL 140 MMOL/L (136-145); TOTAL PROTEIN 5.7 G/DL (5.7-8.2)
[2023-12-23] MEDS: NS 500 ML IV ONE (18:04)
[2023-12-23] MEDS: KCL 10MEQ/100ML SWI (KRUN) 10 MEQ in IV 1 EA IV SCH (18:04)
[2023-12-23 20:09] VITALS: BP 135/76; TEMP 98.2; O2SAT 90
[2023-12-23 20:11] VITALS: O2SAT 83
[2023-12-23 20:14] VITALS: O2SAT 95
[2023-12-23] MEDS: ENOXAPARIN 40MG/0.4ML SYRINGE (J1650 PER 10MG) SC SCH (21:21)
[2023-12-23] MEDS: POTASSIUM CHLORIDE 10MEQ SR TABLET PO SCH (21:22)
[2023-12-23] MEDS: BENZONATATE 100MG CAPSULE PO PRN (21:23)
[2023-12-23] MEDS: MONTELUKAST 10 MG TAB PO SCH (21:24)
[2023-12-23] MEDS: DULoxetine 30MG CAPSULE (CYMBALTA) PO SCH (21:24)
[2023-12-23] MEDS: ALBUTEROL 90 MCG/ACT 8GM HFA INHALER INH PRN (22:05)
[2023-12-23 22:30] VITALS: O2SAT 90
[2023-12-24] VITALS: BP 134/71; TEMP 97.5; O2SAT 92
[2023-12-24 03:48] VITALS: BP 137/77; TEMP 97.9; O2SAT 91
[2023-12-24 07:50] LABS: HEMATOCRIT 35.7 % (36.0-47.0); HEMOGLOBIN 11.2 g/dl (12.0-15.5); MEAN CORPUSCULAR HEMOGLOBIN 27.5 pg (27.0-33.0); MEAN CORPUSCULAR HGB CONC 31.4 g/dl (32.0-36.5); MEAN CORPUSCULAR VOLUME 87.5 fl (80.0-96.0); PLATELET COUNT, AUTOMATED 294 10^3/uL (150-450); RED BLOOD COUNT 4.08 10^6/uL (4.00-5.40); WHITE BLOOD COUNT 9.7 10^3/uL (4.0-10.0)
[2023-12-24] MEDS: cefTRIAXone SOD 1 GM in D5W MINI-BAG PLUS 50 ML IV SCH (07:53)
[2023-12-24 08:20] LABS: ALKALINE PHOSPHATASE 57 U/L (46-116); ALT/SGPT 40 U/L (7.0-40); AST/SGOT 40 U/L (<34); BILIRUBIN,TOTAL 0.5 MG/DL (0.3-1.2); BLOOD UREA NITROGEN 13 MG/DL (9-23); CALCIUM LEVEL 9.1 MG/DL (8.5-10.1); CARBON DIOXIDE LEVEL 33 MMOL/L (20-31); CHLORIDE LEVEL 100 MMOL/L (98-107); CREATININE FOR GFR 0.51 MG/DL (0.55-1.30); GLOMERULAR FILTRATION RATE > 60.0 (>51); GLUCOSE, FASTING 163 MG/DL (60-100); MAGNESIUM LEVEL 1.6 MG/DL (1.8-2.4); SODIUM LEVEL 141 MMOL/L (136-145); TOTAL PROTEIN 5.9 G/DL (5.7-8.2)
[2023-12-24] MEDS: MAG SULF 1GM/100ML (MAG RUN) 1 GM in IV 1 EA IV SCH (09:28)
[2023-12-24] MEDS: traMADol 50 MG TAB PO PRN (10:57)
[2023-12-24] MEDS: KCL 10MEQ/100ML SWI (KRUN) 10 MEQ in IV 1 EA IV SCH (11:56)
[2023-12-24 12:00] VITALS: BP 127/65; TEMP 97.7; O2SAT 90
[2023-12-24 20:00] VITALS: BP 122/59; TEMP 98.1; O2SAT 94
[2023-12-24 20:34] VITALS: BP 122/59; TEMP 98.1; O2SAT 91
[2023-12-24] MEDS: ACETAMINOPHEN TAB 650MG DOSE (2X325MG) PO PRN (20:42)
[2023-12-24] MEDS: SUMAtriptan SUCCINATE 25 MG TAB PO PRN (21:46)
[2023-12-25 03:45] VITALS: BP 124/62; TEMP 97.3; O2SAT 97
[2023-12-25 06:36] LABS: BLOOD UREA NITROGEN 15 MG/DL (9-23); CALCIUM LEVEL 9.1 MG/DL (8.5-10.1); CARBON DIOXIDE LEVEL 30 MMOL/L (20-31); CHLORIDE LEVEL 103 MMOL/L (98-107); CREATININE FOR GFR 0.53 MG/DL (0.55-1.30); GLOMERULAR FILTRATION RATE > 60.0 (>51); GLUCOSE, FASTING 187 MG/DL (60-100); MAGNESIUM LEVEL 1.7 MG/DL (1.8-2.4); POTASSIUM SERUM 3.4 MMOL/L (3.5-5.1); SODIUM LEVEL 142 MMOL/L (136-145)
[2023-12-25] MEDS: MAG SULF 1GM/100ML (MAG RUN) 1 GM in IV 1 EA IV ONE (08:00)
[2023-12-25 09:07] VITALS: BP_SYST 130; BP_SYST 139; BP_DIAS 68; BP_DIAS 69; BP_DIAS 76
[2023-12-25 09:14] VITALS: BP 130/76
[2023-12-25] MEDS ORDERED: CEFD1CAP9 PO (11:05)
[2023-12-25] MEDS ORDERED: MAGN400C PO (11:07)
[2023-12-25] MEDS ORDERED: POTA10TA67 PO (11:07)
[2023-12-25] MEDS: MAGNESIUM OXIDE 400MG TAB (MAG-OX) PO SCH (11:46)
[2023-12-25 12:00] VITALS: BP 133/74; TEMP 97.5; O2SAT 92
[2023-12-25] MEDS: CEFDINIR 300 MG CAP (OMNICEF) PO SCH (12:08)
[2023-12-29] MEDS ORDERED: VITAMIN D 50,000 UNITS CAPSULE (ERGOCALCIFEROL 1.25MG) PO SCH (09:00)
== END 2023-12-25 13:48 | disposition home or self-care (01) | DRG 422 ==
LOC: M ED 04:04 → M ED INP 10:44 → M MSPAV 15:30
PROVIDERS: ADMIT Hospitalist; ATTEND Internal Medicine
DX: E86.0 Dehydration (principal); E11.40 Type 2 diabetes mellitus with diabetic neuropathy, unspecified; L03.115 Cellulitis of right lower limb; E66.9 Obesity, unspecified; E87.6 Hypokalemia; G43.909 Migraine, unspecified, not intractable, without status migrainosus; I10 Essential (primary) hypertension; J45.909 Unspecified asthma, uncomplicated; K21.9 Gastro-esophageal reflux disease without esophagitis; R11.2 Nausea with vomiting, unspecified; M79.7 Fibromyalgia; G47.33 Obstructive sleep apnea (adult) (pediatric); F41.9 Anxiety disorder, unspecified; F32.A Depression, unspecified; L40.50 Arthropathic psoriasis, unspecified; Z91.030 Bee allergy status; Z88.2 Allergy status to sulfonamides; Z88.6 Allergy status to analgesic agent; Z88.8 Allergy status to other drugs, medicaments and biological substances; Z79.899 Other long term (current) drug therapy; M81.0 Age-related osteoporosis without current pathological fracture; E04.1 Nontoxic single thyroid nodule

== ENCOUNTER → 2023-12-25 | Outpatient (CLI) | payer OTHER ==
[~2023-12-25] MED LIST changes: +CEFD1CAP9 PO; +FURO40TA2 PO; +LIDO1PAD TOP; +MAGN400C PO; +POTA10TA67 PO; +SEMA1PEN2 SQ; +SITA50TAB PO
== END ==
LOC: M EKG 13:59
PROVIDERS: ATTEND Internal Medicine
DX: R42 Dizziness and giddiness (principal)

== ENCOUNTER → 2023-12-27 | Outpatient (CLI) | payer OTHER | LOC: M RAD 15:14 | PROVIDERS: ATTEND Physician Assistant | DX: H53.8 Other visual disturbances (principal); R42 Dizziness and giddiness; R51.9 Headache, unspecified; Z53.9 Procedure and treatment not carried out, unspecified reason ==

== ENCOUNTER → 2024-01-01 | Outpatient (CLI) | payer OTHER | LOC: M WHC 14:58 | PROVIDERS: ATTEND Internal Medicine | DX: E04.9 Nontoxic goiter, unspecified (principal) ==

== ENCOUNTER → 2024-01-07 | Outpatient (CLI) | payer OTHER ==
[2024-01-07 18:04] LABS: BASO # 0.1 10^3/uL (0.0-0.2); BASO % 0.7 % (0.0-1.0); EOS # 0.3 10^3/uL (0.0-0.5); EOS % 2.3 % (0.0-3.0); HEMATOCRIT 41.3 % (36.0-47.0); HEMOGLOBIN 12.6 g/dl (12.0-15.5); LYMPH # 1.8 10^3/uL (1.5-5.0); LYMPH % 13.7 % (24.0-44.0); MEAN CORPUSCULAR HGB CONC 30.5 g/dl (32.0-36.5); MEAN CORPUSCULAR VOLUME 88.6 fl (80.0-96.0); MONO # 0.8 10^3/uL (0.0-0.8); NEUTROPHILS # 9.9 10^3/uL (1.5-8.5); NEUTROPHILS % 74.6 % (36.0-66.0); PLATELET COUNT, AUTOMATED 274 10^3/uL (150-450); RED BLOOD COUNT 4.66 10^6/uL (4.00-5.40); WHITE BLOOD COUNT 13.2 10^3/uL (4.0-10.0)
[2024-01-07 18:32] LABS: ALBUMIN 3.3 G/DL (3.2-5.2); ALKALINE PHOSPHATASE 58 U/L (46-116); ALT/SGPT 39 U/L (7.0-40); AST/SGOT 27 U/L (<34); BILIRUBIN,TOTAL 0.4 MG/DL (0.3-1.2); BLOOD UREA NITROGEN 17 MG/DL (9-23); CALCIUM LEVEL 9.9 MG/DL (8.5-10.1); CARBON DIOXIDE LEVEL 30 MMOL/L (20-31); CHLORIDE LEVEL 105 MMOL/L (98-107); CREATININE FOR GFR 0.55 MG/DL (0.55-1.30); GLOMERULAR FILTRATION RATE > 60.0 (>51); GLUCOSE, FASTING 150 MG/DL (60-100); MAGNESIUM LEVEL 1.7 MG/DL (1.8-2.4); POTASSIUM SERUM 4.1 MMOL/L (3.5-5.1); SODIUM LEVEL 142 MMOL/L (136-145); TOTAL PROTEIN 6.6 G/DL (5.7-8.2)
== END ==
LOC: M PLALAB 16:18
PROVIDERS: ATTEND Nurse Practitioner Family
DX: E83.42 Hypomagnesemia (principal); D72.829 Elevated white blood cell count, unspecified; E87.6 Hypokalemia; A41.89 Other specified sepsis

== ENCOUNTER → 2024-01-13 | Outpatient (CLI) | payer OTHER | LOC: M PAIN 17:30 | PROVIDERS: ATTEND Nurse Practitioner Family | DX: M79.10 Myalgia, unspecified site (principal); M47.812 Spondylosis without myelopathy or radiculopathy, cervical region; M47.814 Spondylosis without myelopathy or radiculopathy, thoracic region; M51.36 Other intervertebral disc degeneration, lumbar region; M46.1 Sacroiliitis, not elsewhere classified; G89.29 Other chronic pain; K21.9 Gastro-esophageal reflux disease without esophagitis; F41.9 Anxiety disorder, unspecified; F32.A Depression, unspecified; G47.30 Sleep apnea, unspecified; G62.9 Polyneuropathy, unspecified; E78.00 Pure hypercholesterolemia, unspecified; L40.50 Arthropathic psoriasis, unspecified; Z79.899 Other long term (current) drug therapy; Z88.2 Allergy status to sulfonamides; Z88.5 Allergy status to narcotic agent; Z88.1 Allergy status to other antibiotic agents; Z88.8 Allergy status to other drugs, medicaments and biological substances; Z91.030 Bee allergy status ==

== ENCOUNTER 2024-02-02 12:08 | Inpatient (IN) | payer OTHER ==
[~2024-02-02] VITALS: Ht 175.3 cm; Wt 176.1 kg
[2024-02-02] MEDS: NS 500 ML IV ONE (12:35)
[2024-02-02] MEDS ORDERED: ISOVUE-370 76% 100ML VIAL As Ordered ONE (12:36)
[2024-02-02 12:37] LABS: BASO % 0.5 % (0.0-1.0); EOS # 0.1 10^3/uL (0.0-0.5); EOS % 3.8 % (0.0-3.0); HEMATOCRIT 44.2 % (36.0-47.0); HEMOGLOBIN 13.7 g/dl (12.0-15.5); LYMPH # 0.8 10^3/uL (1.5-5.0); LYMPH % 35.2 % (24.0-44.0); MEAN CORPUSCULAR HEMOGLOBIN 26.7 pg (27.0-33.0); MEAN CORPUSCULAR VOLUME 86.2 fl (80.0-96.0); MONO # 0.2 10^3/uL (0.0-0.8); MONO % 10.3 % (2.0-8.0); NEUTROPHILS % 46.4 % (36.0-66.0); PLATELET COUNT, AUTOMATED 245 10^3/uL (150-450); RED BLOOD COUNT 5.13 10^6/uL (4.00-5.40); WHITE BLOOD COUNT 2.1 10^3/uL (4.0-10.0)
[2024-02-02 12:57] LABS: LIPASE 36 U/L (12-53)
[2024-02-02 12:59] LABS: CPK CREATINE PHOSPHOKINASE 31 U/L (34-145)
[2024-02-02 13:02] LABS: ALBUMIN 3.4 G/DL (3.2-5.2); ALKALINE PHOSPHATASE 68 U/L (46-116); ALT/SGPT 57 U/L (7.0-40); AST/SGOT 50 U/L (<34); BILIRUBIN,DIRECT 0.2 MG/DL (<0.4); BILIRUBIN,TOTAL 0.6 MG/DL (0.3-1.2); BLOOD UREA NITROGEN 18 MG/DL (9-23); CALCIUM LEVEL 8.1 MG/DL (8.5-10.1); CARBON DIOXIDE LEVEL 24 MMOL/L (20-31); CHLORIDE LEVEL 102 MMOL/L (98-107); CK-MB VALUE MASS < 1.0 NG/ML (<3.6); CREATININE FOR GFR 0.58 MG/DL (0.55-1.30); FREE T4 1.08 NG/DL (0.89-1.76); GLOMERULAR FILTRATION RATE > 60.0 (>51); GLUCOSE, FASTING 188 MG/DL (60-100); MAGNESIUM LEVEL 1.3 MG/DL (1.8-2.4); MB/CK RELATIVE INDEX 3.22 (< OR =4); PHOSPHORUS LEVEL 2.4 MG/DL (2.5-4.9); POTASSIUM SERUM 3.7 MMOL/L (3.5-5.1); SODIUM LEVEL 140 MMOL/L (136-145); THYROID STIMULATING HORMONE 3.091 uIU/ML (0.55-4.78); TOTAL PROTEIN 7.1 G/DL (5.7-8.2)
[2024-02-02] MEDS: cefTRIAXone SOD 2 GM in D5W MINI-BAG PLUS 50 ML IV ONE (13:25)
[2024-02-02] MEDS: ACETAMINOPHEN TAB 650MG DOSE (2X325MG) PO ONE (13:25)
[2024-02-02] MEDS: NS IV STA (14:13)
[2024-02-02] MEDS: MAG SULF 1GM/100ML (MAG RUN) 1 GM in IV 1 EA IV ONE (14:13)
[2024-02-02] MEDS: MORPHINE 4 MG/ML 1ML VIAL IV ONE (15:51)
[2024-02-02] MEDS ORDERED: diphenhydrAMINE 50MG/ML VIAL As Ordered ONE (15:57)
[2024-02-02] MEDS: ONDANSETRON 4MG 2ML VIAL IV ONE (16:03)
[2024-02-02] MEDS: diphenhydrAMINE 50MG/ML VIAL IV ONE (16:03)
[2024-02-02] MEDS ORDERED: SUMA50TA2 PO (16:06)
[2024-02-02] MEDS ORDERED: D3 H400T PO (16:08)
[2024-02-02] MEDS ORDERED: MAGN400T2 PO (16:08)
[2024-02-02] MEDS ORDERED: DEXTROSE 50% 50ML SYRINGE IV PRN (16:15)
[2024-02-02] MEDS ORDERED: GLUCAGON INJ 1MG VIAL SC PRN (16:15)
[2024-02-02] MEDS ORDERED: GLUCOSE 4 GM CHEW PO PRN (16:15)
[2024-02-02] MEDS: NS 1,000 ML IV ONE (16:30)
[2024-02-02] MEDS: MAG SULF 1GM/100ML (MAG RUN) 1 GM in IV 1 EA IV SCH (16:30)
[2024-02-02] MEDS ORDERED: ALBUTEROL 90 MCG/ACT 8GM HFA INHALER INH PRN (16:45)
[2024-02-02] MEDS ORDERED: **SFRHE** EPINEPHrine (EPIPEN) 0.3MG/0.3ML SYRINGE INJ PRN (16:45)
[2024-02-02] MEDS ORDERED: HOME MED LIST COMPLETE! XX SCH (17:15)
[2024-02-02 17:21] LABS: PROCALCITONIN 0.28 ng/ml
[2024-02-02] MEDS ORDERED: INSULIN LISPRO (NovoLOG) PER UNIT SC SCH ×2 (17:30→21:00)
[2024-02-02] MEDS: INSULIN LISPRO (NovoLOG) PER UNIT SC SCH (18:00)
[2024-02-02] MEDS: NS 1,000 ML IV SCH (18:44)
[2024-02-02] MEDS: PIPERACILLIN/TAZOBACTAM SOD 3.375 GM in D5W MINI-BAG PLUS 50 ML IV SCH (18:45)
[2024-02-02] MEDS: ONDANSETRON 4MG 2ML VIAL IV PRN (19:28)
[2024-02-02] MEDS: ACETAMINOPHEN TAB 650MG DOSE (2X325MG) PO PRN (19:52)
[2024-02-02] MEDS: diphenhydrAMINE 50MG/ML VIAL IV PRN (19:54)
[2024-02-02] MEDS: MORPHINE 4 MG/ML 1ML VIAL IV PRN (19:54)
[2024-02-02] MEDS: POTASSIUM PHOSPHATE INJ 20 MMOL in D5W 250 ML IV ONE (20:50)
[2024-02-02 20:52] LABS: INR 1.12; PARTIAL THROMBOPLASTIN TIME 28.3 SECONDS (24.8-34.2); PROTHROMBIN TIME 14.1 SECONDS (12.5-14.5)
[2024-02-02 21:15] VITALS: O2SAT 93
[2024-02-02 21:35] VITALS: BP 118/64; TEMP 101.4; O2SAT 93
[2024-02-02] MEDS: PANTOPRAZOLE 40MG VIAL IV SCH (22:28)
[2024-02-02] MEDS: HYDROCORTISONE 100MG/2ML VIAL IV SCH (22:28)
[2024-02-03] VITALS (25 sets, daily range): BP systolic 115–177; BP diastolic 57–83; PULSE 112; TEMP 97.2–100.9; O2SAT 87–96
[2024-02-03 08:46] LABS: HEMATOCRIT 36.5 % (36.0-47.0); HEMOGLOBIN 11.2 g/dl (12.0-15.5); LYMPH # 0.7 10^3/uL (1.5-5.0); LYMPH % 35.6 % (24.0-44.0); MEAN CORPUSCULAR HEMOGLOBIN 26.5 pg (27.0-33.0); MEAN CORPUSCULAR HGB CONC 30.7 g/dl (32.0-36.5); MEAN CORPUSCULAR VOLUME 86.5 fl (80.0-96.0); MONO # 0.4 10^3/uL (0.0-0.8); PLATELET COUNT, AUTOMATED 190 10^3/uL (150-450); RED BLOOD COUNT 4.22 10^6/uL (4.00-5.40); WHITE BLOOD COUNT 2.1 10^3/uL (4.0-10.0)
[2024-02-03 08:51] LABS: ALBUMIN 2.5 G/DL (3.2-5.2); ALKALINE PHOSPHATASE 50 U/L (46-116); ALT/SGPT 58 U/L (7.0-40); AST/SGOT 74 U/L (<34); BILIRUBIN,TOTAL 0.5 MG/DL (0.3-1.2); BLOOD UREA NITROGEN 11 MG/DL (9-23); CALCIUM LEVEL 6.1 MG/DL (8.5-10.1); CARBON DIOXIDE LEVEL 28 MMOL/L (20-31); CHLORIDE LEVEL 107 MMOL/L (98-107); CREATININE FOR GFR 0.57 MG/DL (0.55-1.30); GLOMERULAR FILTRATION RATE > 60.0 (>51); GLUCOSE, FASTING 132 MG/DL (60-100); MAGNESIUM LEVEL 2.2 MG/DL (1.8-2.4); PHOSPHORUS LEVEL 3.8 MG/DL (2.5-4.9); POTASSIUM SERUM 3.2 MMOL/L (3.5-5.1); SODIUM LEVEL 140 MMOL/L (136-145); TOTAL PROTEIN 5.5 G/DL (5.7-8.2)
[2024-02-03] MEDS ORDERED: FIDAXOMICIN 200 MG TAB (DIFICID) PO SCH (09:00)
[2024-02-03 09:19] LABS: NEUTROPHILS # 0.8 10^3/uL (1.5-8.5)
[2024-02-03] MEDS: LACTOBACILLUS ACIDOPHILUS CAP (BACID) PO SCH (10:20)
[2024-02-03] MEDS: FLUTICASONE PROP 0.05% NASAL SPRAY 16 GM (FLONASE) NARES SCH (10:35)
[2024-02-03] MEDS: POTASSIUM CHLORIDE 10MEQ SR TABLET PO ONE (10:36)
[2024-02-03] MEDS: METAXALONE 800 MG TABLET PO SCH (10:36)
[2024-02-03] MEDS: busPIRone 5 MG TAB PO SCH (10:37)
[2024-02-03] MEDS: OMEPRAZOLE 20MG CAP PO SCH (10:37)
[2024-02-03] MEDS: ENOXAPARIN 40MG/0.4ML SYRINGE (J1650 PER 10MG) SC SCH (10:45)
[2024-02-03 11:45] LABS: IMMUNOGLOBULIN A 212.3 MG/DL (40-350); IMMUNOGLOBULIN G 711 MG/DL (650-1600)
[2024-02-03] MEDS: SUMAtriptan SUCCINATE 25 MG TAB PO PRN (11:53)
[2024-02-03] MEDS: INSULIN LISPRO (NovoLOG) PER UNIT SC SCH ×2 (12:42→21:00)
[2024-02-03] MEDS: TAMSULOSIN 0.4 MG CAP PO SCH (21:25)
[2024-02-03] MEDS: MONTELUKAST 10 MG TAB PO SCH (21:25)
[2024-02-03] MEDS: DULoxetine 30MG CAPSULE (CYMBALTA) PO SCH (21:25)
[2024-02-04] VITALS (17 sets, daily range): BP systolic 101–143; BP diastolic 51–75; TEMP 97.5–101.1; O2SAT 2–95
[2024-02-04 05:34] LABS: HEMATOCRIT 36.1 % (36.0-47.0); HEMOGLOBIN 11.1 g/dl (12.0-15.5); MEAN CORPUSCULAR HEMOGLOBIN 26.9 pg (27.0-33.0); MEAN CORPUSCULAR HGB CONC 30.7 g/dl (32.0-36.5); MEAN CORPUSCULAR VOLUME 87.4 fl (80.0-96.0); PLATELET COUNT, AUTOMATED 184 10^3/uL (150-450); RED BLOOD COUNT 4.13 10^6/uL (4.00-5.40)
[2024-02-04 05:51] LABS: BASOPHILS 3 % (0-1); EOSINOPHILS 1 % (0-3); LYMPHOCYTES 35 % (16-44); MONOCYTES 14 % (0-5); NEUTROPHILS 29 % (28-66); PLATELET ESTIMATE NORMAL (NORMAL)
[2024-02-04 05:52] LABS: HYPOCHROMASIA 1+
[2024-02-04 06:01] LABS: ALBUMIN 2.4 G/DL (3.2-5.2); ALKALINE PHOSPHATASE 50 U/L (46-116); ALT/SGPT 58 U/L (7.0-40); AST/SGOT 64 U/L (<34); BILIRUBIN,TOTAL 0.3 MG/DL (0.3-1.2); BLOOD UREA NITROGEN < 5 MG/DL (9-23); CALCIUM LEVEL 6.6 MG/DL (8.5-10.1); CARBON DIOXIDE LEVEL 26 MMOL/L (20-31); CHLORIDE LEVEL 108 MMOL/L (98-107); CREATININE FOR GFR 0.49 MG/DL (0.55-1.30); GLOMERULAR FILTRATION RATE > 60.0 (>51); GLUCOSE, FASTING 152 MG/DL (60-100); MAGNESIUM LEVEL 2.1 MG/DL (1.8-2.4); PHOSPHORUS LEVEL 2.5 MG/DL (2.5-4.9); SODIUM LEVEL 139 MMOL/L (136-145); TOTAL PROTEIN 5.4 G/DL (5.7-8.2)
[2024-02-04 07:03] LABS: IONIZED CALCIUM 3.8 MG/DL (4.5-5.3)
[2024-02-04 07:50] LABS: PROCALCITONIN 0.49 ng/ml
[2024-02-04] MEDS: POTASSIUM CHLORIDE 10MEQ SR TABLET PO SCH (08:25)
[2024-02-04] MEDS: METOCLOPRAMIDE INJ 10MG/2ML VIAL IV ONE (13:53)
[2024-02-04] MEDS: KETOROLAC 30 MG/ML 1ML VIAL IV ONE (13:53)
[2024-02-04] MEDS: DICYCLOMINE 10 MG CAP PO PRN (16:24)
[2024-02-05] VITALS (10 sets, daily range): BP systolic 133–149; BP diastolic 61–69; TEMP 97.4–98.3; O2SAT 93–95
[2024-02-05 06:23] LABS: BASO % 0.3 % (0.0-1.0); EOS # 0.1 10^3/uL (0.0-0.5); EOS % 2.7 % (0.0-3.0); HEMATOCRIT 35.9 % (36.0-47.0); LYMPH # 0.7 10^3/uL (1.5-5.0); LYMPH % 20.5 % (24.0-44.0); MEAN CORPUSCULAR HEMOGLOBIN 26.6 pg (27.0-33.0); MEAN CORPUSCULAR HGB CONC 30.6 g/dl (32.0-36.5); MEAN CORPUSCULAR VOLUME 86.9 fl (80.0-96.0); MONO # 0.4 10^3/uL (0.0-0.8); MONO % 11.6 % (2.0-8.0); NEUTROPHILS # 2.1 10^3/uL (1.5-8.5); NEUTROPHILS % 63.4 % (36.0-66.0); PLATELET COUNT, AUTOMATED 213 10^3/uL (150-450); RED BLOOD COUNT 4.13 10^6/uL (4.00-5.40); WHITE BLOOD COUNT 3.4 10^3/uL (4.0-10.0)
[2024-02-05 07:08] LABS: ALBUMIN 2.4 G/DL (3.2-5.2); ALKALINE PHOSPHATASE 51 U/L (46-116); ALT/SGPT 46 U/L (7.0-40); AST/SGOT 35 U/L (<34); BILIRUBIN,TOTAL 0.2 MG/DL (0.3-1.2); BLOOD UREA NITROGEN < 5 MG/DL (9-23); CALCIUM LEVEL 7.8 MG/DL (8.5-10.1); CARBON DIOXIDE LEVEL 27 MMOL/L (20-31); CHLORIDE LEVEL 109 MMOL/L (98-107); CREATININE FOR GFR 0.54 MG/DL (0.55-1.30); GLOMERULAR FILTRATION RATE > 60.0 (>51); GLUCOSE, FASTING 185 MG/DL (60-100); PHOSPHORUS LEVEL 2.1 MG/DL (2.5-4.9); POTASSIUM SERUM 3.7 MMOL/L (3.5-5.1); SODIUM LEVEL 142 MMOL/L (136-145); TOTAL PROTEIN 5.7 G/DL (5.7-8.2)
[2024-02-05 07:36] LABS: PTH INTACT 73.8 PG/ML (18.5-88.0)
[2024-02-05] MEDS ORDERED: ONDA-83 PO (11:21)
[2024-02-05] MEDS ORDERED: DICY-61 PO (11:22)
[2024-02-05] MEDS ORDERED: PROBCAP14 PO (11:33)
== END 2024-02-05 13:47 | disposition home or self-care (01) | DRG 720 ==
LOC: M ED 12:08 → M ED INP 12:09 → M PCU 21:20 → OBSVTOIN 02-03 16:26
PROVIDERS: ADMIT Internal Medicine; ATTEND Internal Medicine
DX: A41.9 Sepsis, unspecified organism (principal); D84.821 Immunodeficiency due to drugs; E87.20 Acidosis, unspecified; E11.42 Type 2 diabetes mellitus with diabetic polyneuropathy; Z68.43 Body mass index [BMI] 50.0-59.9, adult; A08.11 Acute gastroenteropathy due to Norwalk agent; L40.50 Arthropathic psoriasis, unspecified; E66.01 Morbid (severe) obesity due to excess calories; E83.42 Hypomagnesemia; E83.39 Other disorders of phosphorus metabolism; I10 Essential (primary) hypertension; E78.5 Hyperlipidemia, unspecified; J45.909 Unspecified asthma, uncomplicated; G47.33 Obstructive sleep apnea (adult) (pediatric); G43.909 Migraine, unspecified, not intractable, without status migrainosus; M54.9 Dorsalgia, unspecified; G89.29 Other chronic pain; M79.7 Fibromyalgia; M19.90 Unspecified osteoarthritis, unspecified site; M81.0 Age-related osteoporosis without current pathological fracture; F41.9 Anxiety disorder, unspecified; F32.A Depression, unspecified; K58.9 Irritable bowel syndrome, unspecified; K21.9 Gastro-esophageal reflux disease without esophagitis; R74.01 Elevation of levels of liver transaminase levels; Z79.899 Other long term (current) drug therapy; Z91.030 Bee allergy status; Z88.8 Allergy status to other drugs, medicaments and biological substances; Z88.5 Allergy status to narcotic agent; Z88.2 Allergy status to sulfonamides; Z88.1 Allergy status to other antibiotic agents; Z90.49 Acquired absence of other specified parts of digestive tract; Z56.0 Unemployment, unspecified; E87.6 Hypokalemia; R09.02 Hypoxemia; T38.0X5A Adverse effect of glucocorticoids and synthetic analogues, initial encounter; Z79.52 Long term (current) use of systemic steroids

== ENCOUNTER → 2024-02-18 | Outpatient (CLI) | payer OTHER ==
[~2024-02-18] MED LIST changes: +D3 H400T PO; +DICY-61 PO; +MAGN400T2 PO; +ONDA-83 PO; +PROBCAP14 PO; +SUMA50TA2 PO
[2024-02-18 19:26] LABS: BASO # 0.1 10^3/uL (0.0-0.2); BASO % 0.5 % (0.0-1.0); EOS # 0.1 10^3/uL (0.0-0.5); EOS % 1.1 % (0.0-3.0); HEMATOCRIT 39.2 % (36.0-47.0); LYMPH # 1.1 10^3/uL (1.5-5.0); LYMPH % 8.9 % (24.0-44.0); MEAN CORPUSCULAR HEMOGLOBIN 26.5 pg (27.0-33.0); MEAN CORPUSCULAR HGB CONC 30.6 g/dl (32.0-36.5); MEAN CORPUSCULAR VOLUME 86.5 fl (80.0-96.0); MONO # 0.7 10^3/uL (0.0-0.8); MONO % 5.4 % (2.0-8.0); NEUTROPHILS # 10.2 10^3/uL (1.5-8.5); NEUTROPHILS % 83.2 % (36.0-66.0); PLATELET COUNT, AUTOMATED 335 10^3/uL (150-450); RED BLOOD COUNT 4.53 10^6/uL (4.00-5.40); WHITE BLOOD COUNT 12.3 10^3/uL (4.0-10.0)
[2024-02-18 19:42] LABS: CREATININE, URINE 201.1 MG/DL; MAU/CREAT RATIO 6.9 MCG/MG (0.0-30.0)
[2024-02-18 19:48] LABS: ALBUMIN 3.2 G/DL (3.2-5.2); ALKALINE PHOSPHATASE 61 U/L (46-116); ALT/SGPT 50 U/L (7.0-40); AST/SGOT 49 U/L (<34); BILIRUBIN,TOTAL 0.4 MG/DL (0.3-1.2); BLOOD UREA NITROGEN 10 MG/DL (9-23); CALCIUM LEVEL 9.1 MG/DL (8.5-10.1); CARBON DIOXIDE LEVEL 28 MMOL/L (20-31); CHLORIDE LEVEL 105 MMOL/L (98-107); CHOLESTEROL LEVEL 211 MG/DL (<200); CHOLESTEROL RISK RATIO 5.15 (<5); GLOMERULAR FILTRATION RATE > 60.0 (>51); GLUCOSE, FASTING 200 MG/DL (60-100); HDL CHOLESTEROL 40.9 MG/DL (>40); LDL CHOLESTEROL 123.1 MG/DL (<100); NON-HDL-C 170.1 MG/DL; POTASSIUM SERUM 3.7 MMOL/L (3.5-5.1); SODIUM LEVEL 142 MMOL/L (136-145); THYROID STIMULATING HORMONE 1.496 uIU/ML (0.55-4.78); TOTAL PROTEIN 6.5 G/DL (5.7-8.2); TRIGLYCERIDES LEVEL 235 MG/DL (<150)
[2024-02-18 19:59] LABS: HEMOGLOBIN A1c 7.7 % (4.0-6.0)
== END ==
LOC: M PLALAB 15:03
PROVIDERS: ATTEND Nurse Practitioner Family
DX: E04.1 Nontoxic single thyroid nodule (principal); E78.00 Pure hypercholesterolemia, unspecified; E11.9 Type 2 diabetes mellitus without complications; N28.1 Cyst of kidney, acquired; D72.829 Elevated white blood cell count, unspecified

== ENCOUNTER → 2024-03-02 | Outpatient (CLI) | payer OTHER | LOC: M WHC 12:13 | PROVIDERS: ATTEND Nurse Practitioner Family | DX: M81.8 Other osteoporosis without current pathological fracture (principal); Z12.31 Encounter for screening mammogram for malignant neoplasm of breast ==

== ENCOUNTER 2024-03-08 06:06 | Emergency (ER) | payer OTHER ==
[~2024-03-08] VITALS: Ht 175.3 cm; Wt 170.4 kg
[2024-03-08 06:36] LABS: BASO % 0.3 % (0.0-1.0); EOS # 0.2 10^3/uL (0.0-0.5); EOS % 1.7 % (0.0-3.0); HEMATOCRIT 36.1 % (36.0-47.0); HEMOGLOBIN 11.4 g/dl (12.0-15.5); LYMPH # 2.8 10^3/uL (1.5-5.0); LYMPH % 23.4 % (24.0-44.0); MEAN CORPUSCULAR HEMOGLOBIN 25.9 pg (27.0-33.0); MEAN CORPUSCULAR HGB CONC 31.6 g/dl (32.0-36.5); MONO # 0.5 10^3/uL (0.0-0.8); MONO % 4.3 % (2.0-8.0); NEUTROPHILS # 8.3 10^3/uL (1.5-8.5); PLATELET COUNT, AUTOMATED 318 10^3/uL (150-450); WHITE BLOOD COUNT 12.1 10^3/uL (4.0-10.0)
[2024-03-08 07:00] LABS: CPK CREATINE PHOSPHOKINASE 42 U/L (34-145)
[2024-03-08 07:04] LABS: CK-MB VALUE MASS < 1.0 NG/ML (<3.6); LIPASE 54 U/L (12-53); MB/CK RELATIVE INDEX 2.38 (< OR =4)
[2024-03-08 07:06] LABS: ALBUMIN 3.1 G/DL (3.2-5.2); ALKALINE PHOSPHATASE 58 U/L (46-116); ALT/SGPT 37 U/L (7.0-40); AST/SGOT 42 U/L (<34); BILIRUBIN,DIRECT 0.1 MG/DL (<0.4); BILIRUBIN,TOTAL 0.3 MG/DL (0.3-1.2); BLOOD UREA NITROGEN 15 MG/DL (9-23); CALCIUM LEVEL 9.3 MG/DL (8.5-10.1); CARBON DIOXIDE LEVEL 26 MMOL/L (20-31); CHLORIDE LEVEL 103 MMOL/L (98-107); CREATININE FOR GFR 0.61 MG/DL (0.55-1.30); GLOMERULAR FILTRATION RATE > 60.0 (>51); GLUCOSE, FASTING 187 MG/DL (60-100); POTASSIUM SERUM 3.1 MMOL/L (3.5-5.1); SODIUM LEVEL 140 MMOL/L (136-145); TOTAL PROTEIN 6.4 G/DL (5.7-8.2)
[2024-03-08] MEDS ORDERED: ISOVUE-370 76% 100ML VIAL As Ordered ONE (07:36)
[2024-03-08] MEDS: LORazepam 2 MG/ML 1ML VIAL IV STA (08:05)
[2024-03-08] MEDS: SUCRALFATE SUSP 1GM/10ML UD PO ONE (08:06)
[2024-03-08] MEDS: POTASSIUM CHLORIDE 10MEQ SR TABLET PO ONE (08:06)
[2024-03-08 08:16] LABS: CK-MB VALUE MASS < 1.0 NG/ML (<3.6)
[2024-03-08 08:22] LABS: CPK CREATINE PHOSPHOKINASE 47 U/L (34-145); MB/CK RELATIVE INDEX 2.12 (< OR =4)
[2024-03-08] MEDS ORDERED: DOXA1TAB42 PO (10:22)
[2024-03-08] MEDS ORDERED: ONDA-83 PO (10:22)
[2024-03-08] MEDS ORDERED: [UNRECOGNIZED DRUG - OTHER] SL (10:29)
[2024-03-08] MEDS ORDERED: HOME MED LIST COMPLETE! XX SCH (10:30)
[2024-03-08 11:51] VITALS: BP 131/68; TEMP 98.2; O2SAT 93
== END 2024-03-08 11:59 | disposition home or self-care (01) ==
LOC: M ED 06:06
DX: R07.9 Chest pain, unspecified (principal); N28.1 Cyst of kidney, acquired; E11.9 Type 2 diabetes mellitus without complications; I10 Essential (primary) hypertension; E78.5 Hyperlipidemia, unspecified; J45.909 Unspecified asthma, uncomplicated; K58.9 Irritable bowel syndrome, unspecified; G47.33 Obstructive sleep apnea (adult) (pediatric); F41.9 Anxiety disorder, unspecified; F32.A Depression, unspecified; M79.7 Fibromyalgia; Z88.2 Allergy status to sulfonamides; Z88.5 Allergy status to narcotic agent; Z88.6 Allergy status to analgesic agent; Z88.8 Allergy status to other drugs, medicaments and biological substances; Z91.030 Bee allergy status; Z79.52 Long term (current) use of systemic steroids; Z79.899 Other long term (current) drug therapy
CPT/HCPCS: 71045; 71275; 74177; 80048; 80076; 82550; 82553; 83690; 84484; 85025; 93005; 93041; 94760; 96374; 99285; J2060; Q9967

== ENCOUNTER 2024-03-12 09:53 | Emergency (ER) | payer OTHER ==
[~2024-03-12] VITALS: Ht 172.7 cm; Wt 172.0 kg
[~2024-03-12 09:53] MED LIST changes: -BUPR150T12; -VIST25CA PO
[2024-03-12] MEDS ORDERED: BUPR150T12 (11:20)
[2024-03-12] MEDS: METAXALONE 800 MG TABLET PO ONE (11:42)
[2024-03-12] MEDS: diazePAM 5MG TABLET PO ONE (11:56)
[2024-03-12] MEDS: KETOROLAC 60MG 2ML VIAL IM ONE (11:57)
[2024-03-12] MEDS ORDERED: MORPHINE 10 MG/ML 1ML VIAL IV ONE (12:35)
[2024-03-12] MEDS: diphenhydrAMINE 50MG/ML VIAL IV STA (12:57)
[2024-03-12] MEDS: MORPHINE 4 MG/ML 1ML VIAL IV ONE (12:57)
[2024-03-12 13:56] VITALS: BP 113/70; TEMP 97.3; O2SAT 94
[2024-03-12] MEDS ORDERED: VIST25CA PO (14:23)
== END 2024-03-12 14:32 | disposition home or self-care (01) ==
LOC: M ED 09:53
DX: M54.50 Low back pain, unspecified (principal); F41.9 Anxiety disorder, unspecified; M47.896 Other spondylosis, lumbar region; Z88.2 Allergy status to sulfonamides; Z88.1 Allergy status to other antibiotic agents; Z88.6 Allergy status to analgesic agent; Z88.5 Allergy status to narcotic agent; Z88.8 Allergy status to other drugs, medicaments and biological substances; Z79.52 Long term (current) use of systemic steroids; Z79.83 Long term (current) use of bisphosphonates; Z79.899 Other long term (current) drug therapy
CPT/HCPCS: 72131; 96372; 96374; 99284; G0463; J1200; J1885

== ENCOUNTER → 2024-03-12 | Outpatient (CLI) | payer OTHER ==
[~2024-03-12] MED LIST changes: +BUPR150T12; +DOXA1TAB42 PO; +VIST25CA PO; +[UNRECOGNIZED DRUG - OTHER] SL
== END ==
LOC: M PAIN 08:30
PROVIDERS: ATTEND Anesthesiology
DX: M79.18 Myalgia, other site (principal); M79.10 Myalgia, unspecified site; M54.50 Low back pain, unspecified; K21.9 Gastro-esophageal reflux disease without esophagitis; F41.9 Anxiety disorder, unspecified; F32.A Depression, unspecified; G62.9 Polyneuropathy, unspecified; J45.909 Unspecified asthma, uncomplicated; G47.30 Sleep apnea, unspecified; E04.1 Nontoxic single thyroid nodule; E78.00 Pure hypercholesterolemia, unspecified; L40.50 Arthropathic psoriasis, unspecified; Z79.899 Other long term (current) drug therapy; Z88.1 Allergy status to other antibiotic agents; Z88.2 Allergy status to sulfonamides; Z88.5 Allergy status to narcotic agent; Z91.030 Bee allergy status; Z53.09 Procedure and treatment not carried out because of other contraindication

== ENCOUNTER 2024-03-14 04:29 | Emergency (ER) | payer OTHER ==
[~2024-03-14] VITALS: Ht 172.7 cm; Wt 172.7 kg
[~2024-03-14 04:29] MED LIST changes: +BUPR150T12; +VIST25CA PO
[2024-03-14] MEDS: diphenhydrAMINE 25MG CAP PO ONE (06:50)
[2024-03-14] MEDS: CEPHALEXIN 500 MG CAP PO ONE (06:50)
[2024-03-14] MEDS: LIDOCAINE 1% MDV 20ML VIAL SC ONE (06:53)
[2024-03-14] MEDS: MORPHINE 4 MG/ML 1ML VIAL IM ONE (06:57)
[2024-03-14] MEDS: ONDANSETRON 4MG ORAL DISINTEGRATING TAB PO ONE (06:59)
[2024-03-14] MEDS ORDERED: HYDR-3713 PO (07:40)
[2024-03-14] MEDS ORDERED: CEPH500C PO (07:40)
[2024-03-14 08:00] VITALS: BP 137/81; TEMP 98.5; O2SAT 95
== END 2024-03-14 08:02 | disposition home or self-care (01) ==
LOC: M ED 04:29
DX: S81.811A Laceration without foreign body, right lower leg, initial encounter (principal); W26.8XXA Contact with other sharp object(s), not elsewhere classified, initial encounter; M54.50 Low back pain, unspecified; K21.9 Gastro-esophageal reflux disease without esophagitis; F41.9 Anxiety disorder, unspecified; G47.33 Obstructive sleep apnea (adult) (pediatric); E66.9 Obesity, unspecified; Z88.2 Allergy status to sulfonamides; Z88.6 Allergy status to analgesic agent; Z88.5 Allergy status to narcotic agent; Z88.8 Allergy status to other drugs, medicaments and biological substances; Z91.030 Bee allergy status; Y92.009 Unspecified place in unspecified non-institutional (private) residence as the place of occurrence of the external cause; Y93.89 Activity, other specified; Y99.9 Unspecified external cause status; Z79.52 Long term (current) use of systemic steroids; Z79.83 Long term (current) use of bisphosphonates; Z79.899 Other long term (current) drug therapy; Z79.2 Long term (current) use of antibiotics

== ENCOUNTER → 2024-03-26 | Outpatient (CLI) | payer OTHER ==
[~2024-03-26] MED LIST changes: +CEPH500C PO; +HYDR-3713 PO
== END ==
LOC: M WHC 13:43
PROVIDERS: ATTEND Nurse Practitioner Family
DX: M19.90 Unspecified osteoarthritis, unspecified site (principal)

== ENCOUNTER → 2024-03-31 | Outpatient (REF) | payer OTHER | LOC: M SFHCDERM 12:59 | PROVIDERS: ATTEND Physician Assistant | DX: T14.8XXA Other injury of unspecified body region, initial encounter (principal) ==

== ENCOUNTER → 2024-06-11 | Outpatient (CLI) | payer OTHER ==
[~2024-06-11] MED LIST changes: +META-10 PO; -META1TAB22 PO
== END ==
LOC: M RAD 10:04
PROVIDERS: ATTEND Physician Assistant Medical
DX: D48.0 Neoplasm of uncertain behavior of bone and articular cartilage (principal)
CPT/HCPCS: 78306; A9503

== ENCOUNTER → 2024-07-29 | Outpatient (CLI) | payer OTHER ==
[2024-07-29 18:35] LABS: ALBUMIN 2.9 G/DL (3.2-5.2); ALKALINE PHOSPHATASE 72 U/L (35-104); ALT/SGPT 41 U/L (7.0-40); AST/SGOT 52 U/L (<34); BILIRUBIN,TOTAL 0.4 MG/DL (0.3-1.2); BLOOD UREA NITROGEN 12 MG/DL (9-23); CALCIUM LEVEL 8.7 MG/DL (8.5-10.1); CARBON DIOXIDE LEVEL 28 MMOL/L (20-31); CHLORIDE LEVEL 104 MMOL/L (98-107); CREATININE FOR GFR 0.62 MG/DL (0.55-1.30); GLOMERULAR FILTRATION RATE > 60.0 (>51); GLUCOSE, FASTING 167 MG/DL (60-100); POTASSIUM SERUM 3.8 MMOL/L (3.5-5.1); SODIUM LEVEL 144 MMOL/L (136-145); TOTAL PROTEIN 6.7 G/DL (5.7-8.2)
== END ==
LOC: M PLALAB 16:19
PROVIDERS: ATTEND Orthopaedic Surgery
DX: Z01.812 Encounter for preprocedural laboratory examination (principal); M54.50 Low back pain, unspecified; M54.6 Pain in thoracic spine

== ENCOUNTER → 2024-08-04 | Outpatient (CLI) | payer OTHER ==
[~2024-08-04] MED LIST changes: +MIDAZOLAM INJ 2MG/2ML VIAL As Ordered ONE; +ONDANSETRON 4MG 2ML VIAL As Ordered ONE
[2024-08-04 10:30] VITALS: TEMP 98
[2024-08-04] MEDS: MIDAZOLAM INJ 2MG/2ML VIAL IV ONE (12:00)
[2024-08-04] MEDS: ONDANSETRON 4MG 2ML VIAL IV ONE (14:51)
[2024-08-04 15:15] VITALS: BP 96/46; O2SAT 93
== END ==
LOC: M RADPRO 10:11
PROVIDERS: ATTEND Orthopaedic Surgery
DX: M54.2 Cervicalgia (principal); M51.26 Other intervertebral disc displacement, lumbar region; M51.27 Other intervertebral disc displacement, lumbosacral region
CPT/HCPCS: 72146; 72148; J2250; J2405; P9045

== ENCOUNTER → 2024-09-01 | Outpatient (CLI) | payer OTHER ==
[~2024-09-01] MED LIST changes: +CALCIUM CHLORIDE 10% 1 GM/10 ML SYR ONE; +LIDOCAINE 2% 100MG/5ML SDV (FOR ANES.) ONE; +PHENYLephrine 500MCG 5ML (100MCG/ML) SYRINGE ONE; +SEVOFLURANE INHAL SOLN 250 ML BTL ONE; +ePHEDrine SULFATE 25 MG/5 ML(5MG/ML) SYRINGE ONE; +fentaNYL 100 MCG/2 ML INJECTION As Ordered ONE; +propofoL 200 MG/20 ML VIAL ONE
[2024-09-01 11:50] VITALS: TEMP 98.1
[2024-09-01 14:45] VITALS: BP 132/60; O2SAT 95
== END ==
LOC: M RADPRO 11:31
PROVIDERS: ATTEND Orthopaedic Surgery
DX: M50.323 Other cervical disc degeneration at C6-C7 level (principal); M54.6 Pain in thoracic spine
CPT/HCPCS: 72141; J2250; J2405; J3010

== ENCOUNTER → 2024-10-26 | Outpatient (REF) | payer OTHER, MEDICAID ==
[~2024-10-26] MED LIST changes: -CALCIUM CHLORIDE 10% 1 GM/10 ML SYR ONE; -CLOT10TR PO; +CLOT10TR11 PO; -LIDOCAINE 2% 100MG/5ML SDV (FOR ANES.) ONE; -MIDAZOLAM INJ 2MG/2ML VIAL As Ordered ONE; -ONDANSETRON 4MG 2ML VIAL As Ordered ONE; -PHENYLephrine 500MCG 5ML (100MCG/ML) SYRINGE ONE; -SEVOFLURANE INHAL SOLN 250 ML BTL ONE; -ePHEDrine SULFATE 25 MG/5 ML(5MG/ML) SYRINGE ONE; -fentaNYL 100 MCG/2 ML INJECTION As Ordered ONE; -propofoL 200 MG/20 ML VIAL ONE
[2024-10-28 12:07] LABS: HPV APTIMA Not Detected (Not Detected)
== END ==
LOC: M SFHCWAGY 15:32
PROVIDERS: ATTEND Nurse Practitioner Family
DX: Z12.4 Encounter for screening for malignant neoplasm of cervix (principal); Z11.51 Encounter for screening for human papillomavirus (HPV); Z77.9 Other contact with and (suspected) exposures hazardous to health

== ENCOUNTER → 2025-04-05 | Outpatient (REF) | payer OTHER ==
[~2025-04-05] MED LIST changes: +LIDO1ADH93 TD; -LIDO5DIS41 TD
[2025-04-06 18:38] LABS: TOTAL PROTEIN,RANDOM URINE 27.3 MG/DL (0.0-14.0)
== END ==
LOC: M LAB REF 16:43
PROVIDERS: ATTEND Internal Medicine Nephrology
DX: E87.6 Hypokalemia (principal); Q61.9 Cystic kidney disease, unspecified

== ENCOUNTER → 2025-05-17 | Outpatient (CLI) | payer OTHER ==
[~2025-05-17] MED LIST changes: +POTA-232 PO; -POTA10TA67 PO
== END ==
LOC: M PLALAB 10:56
PROVIDERS: ATTEND Psychiatry & Neurology Neurology
DX: R41.841 Cognitive communication deficit (principal)

== ENCOUNTER → 2025-05-17 | Outpatient (CLI) | payer OTHER ==
[2025-05-17 14:48] LABS: BASO # 0.1 10^3/uL (0.0-0.2); BASO % 0.6 % (0.0-1.0); EOS # 0.3 10^3/uL (0.0-0.5); EOS % 2.2 % (0.0-3.0); LYMPH # 2.8 10^3/uL (1.5-5.0); LYMPH % 19.5 % (24.0-44.0); MONO # 0.6 10^3/uL (0.0-0.8); MONO % 3.9 % (2.0-8.0); NEUTROPHILS # 10.4 10^3/uL (1.5-8.5); NEUTROPHILS % 72.5 % (36.0-66.0); PLATELET COUNT, AUTOMATED 311 10^3/uL (150-450)
[2025-05-17 14:53] LABS: ALT/SGPT 50 U/L (7.0-40); AST/SGOT 48 U/L (<34); C REACTIVE PROTEIN QUANTITATIV 2.27 MG/DL (<1.0); CALCIUM LEVEL 9.7 MG/DL (8.5-10.1); CARBON DIOXIDE LEVEL 32 MMOL/L (20-31); CHLORIDE LEVEL 99 MMOL/L (98-107); CREATININE FOR GFR 0.65 MG/DL (0.55-1.30); GLOMERULAR FILTRATION RATE > 90.0 (>51); POTASSIUM SERUM 4.2 MMOL/L (3.5-5.1); SODIUM LEVEL 142 MMOL/L (136-145)
== END ==
LOC: M PLALAB 10:53
PROVIDERS: ATTEND Internal Medicine Rheumatology
DX: L40.50 Arthropathic psoriasis, unspecified (principal); M79.18 Myalgia, other site; Z79.60 Long term (current) use of unspecified immunomodulators and immunosuppressants; M81.8 Other osteoporosis without current pathological fracture; Z79.52 Long term (current) use of systemic steroids; M48.10 Ankylosing hyperostosis [Forestier], site unspecified; Z86.19 Personal history of other infectious and parasitic diseases

== ENCOUNTER → 2025-05-17 | Outpatient (CLI) | payer OTHER | LOC: M PLALAB 10:50 | PROVIDERS: ATTEND Internal Medicine Cardiovascular Disease | DX: R06.09 Other forms of dyspnea (principal); I10 Essential (primary) hypertension ==

== ENCOUNTER → 2025-06-08 | Outpatient (CLI) | payer OTHER | LOC: M RAD 13:33 | PROVIDERS: ATTEND Nurse Practitioner Family | DX: E04.1 Nontoxic single thyroid nodule (principal) ==

== ENCOUNTER → 2025-06-08 | Outpatient (CLI) | payer OTHER | LOC: M RAD 13:50 | PROVIDERS: ATTEND Nurse Practitioner Family | DX: R60.9 Edema, unspecified (principal) ==